=== PATIENT | male | born 1960 | race Caucasian/White ===

== ENCOUNTER → 2016-10-08 | Outpatient (CLI) | payer BC, OTHER ==
[~2016-10-08] MED LIST: ALBU0.084 NEB; ALBU17IN INH; ALBU83IN INH; ASCO10003 PO; ASPI81CH39 PO; ASPI81TA7 PO; BYST20TA PO; BYST20TA2 PO; COLE1TAB PO; FISH1200 PO; FISH120012 PO; FISH5CAP PO; LEVA1TAB2 PO; LEVO500T PO; LOVA1CAP17 PO; MULTCAP12 PO; MULTLIQ7 PO; MULTTAB4 PO; PRAV20TA2 PO; PRAV40TA2 PO; PRED10TA PO; VITA10006 PO; ZETI10TA30 PO
--- NOTE | 2016-10-09 12:47 | REP ---
CHEST, TWO VIEWS: Two views of the chest are performed and compared with prior study of 05/03/2016 as well as other prior exams. There is mild biapical pleural thickening and scattered mild interstitial opacities which are unchanged. No acute infiltrate or pulmonary edema is seen. The heart is not enlarged. The mediastinal silhouette is unchanged. There are mild degenerative changes of the spine. IMPRESSION: Stable chronic findings without evidence of acute infiltrate. Signed by Darrius Bird MD 10/09/2016 07:29 P
== END ==
LOC: M RAD 21:08
PROVIDERS: ATTEND Physician Assistant
DX: R06.02 Shortness of breath (principal); R05 Cough

== ENCOUNTER → 2017-06-14 | Outpatient (REF) | payer BC, OTHER | LOC: M LAB REF 13:27 | DX: C44.519 Basal cell carcinoma of skin of other part of trunk (principal) | CPT/HCPCS: 88305 ==

== ENCOUNTER → 2017-07-30 | Outpatient (CLI) | payer BC, OTHER | LOC: M WUC 13:12 | DX: J44.9 Chronic obstructive pulmonary disease, unspecified (principal); R07.9 Chest pain, unspecified | CPT/HCPCS: 71046 ==

== ENCOUNTER → 2018-01-11 | Outpatient (REF) | payer OTHER | LOC: M LAB REF 17:26 | DX: L57.0 Actinic keratosis (principal) ==

== ENCOUNTER → 2018-06-15 | Outpatient (REF) | payer OTHER | LOC: M SFHCPLAZ 09:58 | PROVIDERS: ATTEND Dermatology | DX: L57.0 Actinic keratosis (principal) ==

== ENCOUNTER 2018-08-29 10:35 | Day surgery (SDC) | payer BC, OTHER ==
[~2018-08-29] VITALS: Ht 180.3 cm; Wt 103.9 kg
[~2018-08-29 10:35] MED LIST changes: +ALEV220T22 PO; -ASPI81CH39 PO; +ASPI81CH44 PO; +BIMA01SOL OD; +GABA-843 PO; +GLIP5TAB20 PO; +LIDOCAINE 2% INJ 100 MG/5 ML SDV (FOR ANES.) As Ordered ONE; +NS 1,000 ML IV ONE; +OMEG1CAP16 PO; +PRED-351 PO; -PRED10TA PO; +PROPOFOL 200 MG/20 ML VIAL As Ordered ONE; +REST0.05 OD; +VITA-172 PO; +VITA500T PO
[2018-08-29] MEDS ORDERED: fentaNYL 100 MCG/2 ML INJECTION (J3010) As Ordered ONE (11:10)
--- NOTE | 2018-08-29 11:40 | ROOR ---
Patient Name: Moris Damian Procedure Date: 08/29/2018 11:28 AM Date of : 1960 Age: 57 Room: [facility] Gender: Male Note Status: Finalized Procedure: Upper GI endoscopy Indications: Dysphagia Providers: DO José Miguel Kapadia MD: Tc Fagan MD Requesting Provider: Medicines: Propofol per Anesthesia Complications: No immediate complications. Procedure: Pre-Anesthesia Assessment: - Prior to the procedure, a History and Physical was performed, and patient medications and allergies were reviewed. The patient is competent. The risks and benefits of the procedure and the sedation options and risks were discussed with the patient. All questions were answered and informed consent was obtained. Patient identification and proposed procedure were verified by the physician, the nurse, the anesthesiologist and the environmental health technician in the endoscopy suite. Mental Status Examination: alert and oriented. Airway Examination: normal oropharyngeal airway and neck mobility. Respiratory Examination: clear to auscultation. CV Examination: normal. Prophylactic Antibiotics: The patient does not require prophylactic antibiotics. Prior Anticoagulants: The patient has taken no previous anticoagulant or antiplatelet agents. ASA Grade Assessment: II - A patient with mild systemic disease. After reviewing the risks and benefits, the patient was deemed in satisfactory condition to undergo the procedure. The anesthesia plan was to use monitored anesthesia care (MAC). Immediately prior to administration of medications, the patient was re-assessed for adequacy to receive sedatives. The heart rate, respiratory rate, oxygen saturations, blood pressure, adequacy of pulmonary ventilation, and response to care were monitored throughout the procedure. The physical status of the patient was re-assessed after the procedure. The Endoscope was introduced through the mouth, and advanced to the second part of duodenum. The upper GI endoscopy was accomplished without difficulty. The patient tolerated the procedure well. Findings: The Z-line was irregular. Biopsies were taken with a cold forceps for histology. Estimated blood loss was minimal. A small hiatal hernia was present. Impression: - Z-line irregular. Biopsied. - Small hiatal hernia. Recommendation: - Patient has a contact number available for emergencies. The signs and symptoms of potential delayed complications were discussed with the patient. Return to normal activities tomorrow. Written discharge instructions were provided to the patient. - Await pathology results. - Return to my office as previously scheduled. Darrius Lowe DO 08/29/2018 11:39:43 AM Electronically signed by Darrius Lowe DO Number of Addenda: 0 Note Initiated On: 08/29/2018 11:28 AM Estimated Blood Loss: Estimated blood loss: none.
[2018-08-29 12:10] VITALS: BP 160/84
== END 2018-08-29 12:09 | disposition home or self-care (01) ==
LOC: M OPP 10:35
PROVIDERS: ATTEND Surgery
DX: K22.8 Other specified diseases of esophagus (principal); K44.9 Diaphragmatic hernia without obstruction or gangrene; R13.10 Dysphagia, unspecified; Z88.0 Allergy status to penicillin; Z88.8 Allergy status to other drugs, medicaments and biological substances; Z79.899 Other long term (current) drug therapy; Z87.891 Personal history of nicotine dependence
CPT/HCPCS: 43239; 88305; J3010

== ENCOUNTER → 2018-09-10 | Outpatient (CLI) | payer BC, OTHER ==
[~2018-09-10] MED LIST changes: +E-Z-GAS II EFFERVESCENT PACKET (SODIUM BICARB./CITRIC ACID/SIMETHICONE) As Ordered ONE; +E-Z-HD 98% w/w 340GM SUSP BTL As Ordered ONE; +E-Z-PAQUE 96% w/w SUSP 176GM BTL As Ordered ONE; -LIDOCAINE 2% INJ 100 MG/5 ML SDV (FOR ANES.) As Ordered ONE; -NS 1,000 ML IV ONE; -PROPOFOL 200 MG/20 ML VIAL As Ordered ONE
--- NOTE | 2018-09-11 08:37 | REP ---
Examination Requested: Esophagram Barium Swallow Reason For Exam/Comment: Dysphasia Esophagram: The procedure was performed LESLEY Salmon, under the direct supervision of Dr. Nye. The images were reviewed with Dr. Nye . 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 No significant changes since previous chest x-ray dated 07/30/2018. Liquid barium and gas producing granules were given in the erect position as well as liquid barium in the prone oblique position, in order to perform a double contrast esophagram examination. Oral and pharyngeal stages of the examination were unremarkable. Esophageal transport is efficient and there is no esophagitis, stricture, or mucosal ring noted. There is a sliding hiatal hernia noted. Gastroesophageal reflux was noted to the level of the thoracic inlet. Impression: 1. Sliding hiatal hernia. 2. Gastroesophageal reflux to the level of the thoracic inlet. 0.7 minutes of fluoroscopy time was utilized for this procedure. Some fluoroscopic images are performed with last image hold technology. These images require no additional radiation. Reviewed by LESLEY Phelan 09/10/2018 04:09 P Electronically Signed by Robert Nye MD 09/11/2018 07:47 A
== END ==
LOC: M RAD 09:58
PROVIDERS: ATTEND Nurse Practitioner
DX: K44.9 Diaphragmatic hernia without obstruction or gangrene (principal); K21.9 Gastro-esophageal reflux disease without esophagitis

== ENCOUNTER 2019-03-24 19:32 | Emergency (ER) | payer BC, OTHER ==
[~2019-03-24] VITALS: Ht 175.3 cm; Wt 105.5 kg
[~2019-03-24 19:32] MED LIST changes: -E-Z-GAS II EFFERVESCENT PACKET (SODIUM BICARB./CITRIC ACID/SIMETHICONE) As Ordered ONE; -E-Z-HD 98% w/w 340GM SUSP BTL As Ordered ONE; -E-Z-PAQUE 96% w/w SUSP 176GM BTL As Ordered ONE; +ZETI10TA16 PO; -ZETI10TA30 PO
[2019-03-24] MEDS ORDERED: MILK500C PO (19:46)
[2019-03-24] MEDS ORDERED: CBD OIL (19:46)
[2019-03-24 20:00] VITALS: BP 184/77
[2019-03-24] MEDS ORDERED: ACETAMINOPHEN *IV* 1,000 MG in IV 1 EA IV ONE (20:15)
--- NOTE | 2019-03-24 21:34 | REPVR ---
PROCEDURE INFORMATION: Exam: CT Abdomen And Pelvis Without Contrast Exam date and time: 03/24/2019 8:18 PM Age: 58 years old Clinical indication: Abdominal pain; Colic; Additional info: R colic TECHNIQUE: Imaging protocol: Computed tomography of the abdomen and pelvis without contrast. Radiation optimization: All CT scans at this facility use at least one of these dose optimization techniques: automated exposure control; mA and/or kV adjustment per patient size (includes targeted exams where dose is matched to clinical indication); or iterative reconstruction. COMPARISON: No relevant prior studies available. FINDINGS: Pleural space: Small calcified and noncalcified pleural plaques. Mediastinum: Small fat containing hiatal hernia. Liver: The liver is low attenuation indicating hepatic steatosis. Gallbladder and bile ducts: Normal. No calcified stones. No ductal dilation. Pancreas: Atrophy and partial fatty replacement of the pancreas. Pancreas is otherwise unremarkable without mass or inflammatory changes. Spleen: Normal. No splenomegaly. Adrenals: Normal. No mass. Kidneys and ureters: Normal. No hydronephrosis. Stomach and bowel: Unremarkable. No obstruction. No mucosal thickening. Appendix: No evidence of appendicitis. Intraperitoneal space: Unremarkable. No free air. No significant fluid collection. Vasculature: Unremarkable. No abdominal aortic aneurysm. Lymph nodes: Unremarkable. No enlarged lymph nodes. Bladder: Unremarkable as visualized. Reproductive: Unremarkable as visualized. Bones/joints: There are degenerative changes in the spine and pelvis. Soft tissues: Unremarkable. IMPRESSION: 1. No acute findings. No urinary tract calculi or hydronephrosis. 2. Atrophy and partial fatty replacement of the pancreas without inflammatory changes. 3. Hepatic steatosis. 4. Small fat containing hiatal hernia. Electronically signed by: Joey Koo On 03/24/2019 21:33:32 PM
[2019-03-24] MEDS ORDERED: MORPHINE 4 MG/ML 1ML VIAL/SYRINGE (J2270) IV ONE (22:30)
== END 2019-03-24 23:12 | disposition home or self-care (01) ==
LOC: M ED 19:32
DX: S39.012A Strain of muscle, fascia and tendon of lower back, initial encounter (principal); X58.XXXA Exposure to other specified factors, initial encounter; Y92.9 Unspecified place or not applicable; Y93.9 Activity, unspecified; Y99.9 Unspecified external cause status; E11.9 Type 2 diabetes mellitus without complications; I10 Essential (primary) hypertension; Z87.09 Personal history of other diseases of the respiratory system; J44.9 Chronic obstructive pulmonary disease, unspecified; M19.90 Unspecified osteoarthritis, unspecified site; Z95.5 Presence of coronary angioplasty implant and graft; K76.0 Fatty (change of) liver, not elsewhere classified; Z79.82 Long term (current) use of aspirin; Z79.84 Long term (current) use of oral hypoglycemic drugs; Z79.899 Other long term (current) drug therapy; Z88.6 Allergy status to analgesic agent; Z88.0 Allergy status to penicillin; Z88.8 Allergy status to other drugs, medicaments and biological substances
CPT/HCPCS: 74176; 96374; 96375; 99284; J0131; J2270

== ENCOUNTER 2019-03-26 15:37 | Emergency (ER) | payer BC, OTHER ==
[~2019-03-26] VITALS: Ht 175.3 cm; Wt 110.4 kg
[~2019-03-26 15:37] MED LIST changes: +CBD OIL; +MILK500C PO
[2019-03-26] MEDS ORDERED: MELO15TA28 (16:13)
[2019-03-26] MEDS ORDERED: TRAM50TA2 (16:13)
--- NOTE | 2019-03-26 18:10 | REP ---
Chest x-ray: Two views. History: Short of breath. Comparison study: July 30, 2017. Findings: There is post thoracotomy suture line in the right apex medially. The lungs are well inflated and otherwise clear. Pleural angles are sharp. Heart size is normal. Pulmonary vasculature is not increased. Impression: Stable post thoracotomy changes on the right. Otherwise no acute disease. Electronically Signed by Marshall Hidalgo MD 03/26/2019 06:00 P
[2019-03-26 18:17] LABS: BASO % 0.4 % (0.0-1.0); EOS # 0.1 10^3/uL (0.0-0.5); EOS % 0.9 % (0.0-3.0); HEMATOCRIT 44.8 % (42.0-52.0); HEMOGLOBIN 15.2 g/dl (13.5-17.5); LYMPH # 2.3 10^3/uL (1.5-5.0); LYMPH % 22.9 % (24.0-44.0); MEAN CORPUSCULAR HEMOGLOBIN 30.6 pg (27.0-33.0); MEAN CORPUSCULAR HGB CONC 33.9 g/dl (32.0-36.5); MEAN CORPUSCULAR VOLUME 90.1 fl (80.0-96.0); MONO # 0.7 10^3/uL (0.0-0.8); NEUTROPHILS # 6.9 10^3/uL (1.5-8.5); PLATELET COUNT, AUTOMATED 243 10^3/uL (150-450); RED BLOOD COUNT 4.97 10^6/uL (4.30-6.10); WHITE BLOOD COUNT 10.2 10^3/uL (4.0-10.0)
[2019-03-26 18:26] LABS: INR 1.03; PROTHROMBIN TIME 13.2 SECONDS (11.8-14.0)
[2019-03-26 18:27] LABS: PARTIAL THROMBOPLASTIN TIME 28.3 SECONDS (25.0-38.4)
[2019-03-26 18:40] LABS: ALBUMIN 3.6 GM/DL (3.2-5.2); ALT/SGPT 40 U/L (12-78); BILIRUBIN,DIRECT 0.2 MG/DL (0.0-0.2); BILIRUBIN,TOTAL 0.8 MG/DL (0.2-1.0); BLOOD UREA NITROGEN 7 MG/DL (7-18); CALCIUM LEVEL 8.9 MG/DL (8.5-10.1); CARBON DIOXIDE LEVEL 30 MEQ/L (21-32); CHLORIDE LEVEL 105 MEQ/L (98-107); CK-MB VALUE MASS 2.1 NG/ML (<3.6); CPK CREATINE PHOSPHOKINASE 126 U/L (39-308); CREATININE FOR GFR 0.78 MG/DL (0.70-1.30); FREE T4 0.96 NG/DL (0.76-1.46); GLOMERULAR FILTRATION RATE > 60.0 (>56); GLUCOSE, FASTING 130 MG/DL (70-100); MB/CK RELATIVE INDEX 1.67 (< OR =4); POTASSIUM SERUM 4.1 MEQ/L (3.5-5.1); SODIUM LEVEL 142 MEQ/L (136-145); TOTAL PROTEIN 7.1 GM/DL (6.4-8.2); TROPONIN I < 0.02 NG/ML (< 0.10)
[2019-03-26] MEDS ORDERED: IPRATROPIUM 0.5MG/ALBUTEROL 2.5MG INH SOL UD 3ML (DUONEB)(J7620) NEB ONE (19:00)
[2019-03-26] MEDS ORDERED: methylPREDNISolone INJ 125 MG/2 ML VIAL (J2930) IV ONE (19:00)
[2019-03-26] MEDS ORDERED: ISOVUE-370 76% 100ML VIAL (Q9967) As Ordered ONE (19:16)
--- NOTE | 2019-03-26 20:56 | REPVR ---
PROCEDURE INFORMATION: Exam: CT Angiography Chest With Contrast Exam date and time: 03/26/2019 7:16 PM Age: 58 years old Clinical indication: Shortness of breath; Additional info: SOB, palpitations TECHNIQUE: Imaging protocol: Computed tomographic angiography of the chest with intravenous contrast. 3D rendering: MIP and/or 3D reconstructed images were created by the technologist. Radiation optimization: All CT scans at this facility use at least one of these dose optimization techniques: automated exposure control; mA and/or kV adjustment per patient size (includes targeted exams where dose is matched to clinical indication); or iterative reconstruction. Contrast material: ISOVUE 370; Contrast volume: 75 ml; Contrast route: IV; COMPARISON: CT ANGIO CHEST 10/20/2014 11:53 PM FINDINGS: Pulmonary arteries: There are no pulmonary emboli. Aorta: There is no aortic dissection or aneurysm. Lungs: Mild bilateral apical subpleural interstitial fibrotic changes and cystic change likely related to paraseptal emphysema and less likely interstitial lung disease, stable in comparison to the prior study. There is bibasilar compressive atelectasis. Nodular opacity in the medial aspect of the right middle lobe has increased in size now measuring 10 x 7 mm in maximal cross-sectional dimension with craniocaudad measurement of 4.8 cm. Finding is of uncertain significance and appears to represent a vascular structure, however the interval increase in size is a potentially worrisome finding. Continued interval follow-up suggested. Pleural space: Unremarkable. No pneumothorax. No pleural effusion. Heart: Cardiomegaly. Mediastinum: A moderate hiatal hernia is present. Liver: Hepatic steatosis. Lymph nodes: Mediastinal lymphadenopathy measures up to 12 mm in the lateral AP window, 10 mm in the retrocaval pretracheal area and 9 mm in the right paraesophageal region. Bones/joints: The spine demonstrates mild degenerative changes. Soft tissues: Unremarkable. IMPRESSION: 1. Stable upper lung zone paraseptal emphysema/interstitial lung disease. 2. Nodular opacity in the medial aspect of the right middle lobe has increased in size as described above. Finding is of uncertain significance and appears to represent a vascular structure, however the interval increase in size is a potentially worrisome finding. Continued interval follow-up suggested. 3. There is no aortic dissection or aneurysm. 4. A moderate hiatal hernia is present. 5. There are no pulmonary emboli. Electronically signed by: Grzegorz Rojas On 03/26/2019 20:56:10 PM
[2019-03-26 21:45] VITALS: BP 174/85
[2019-03-26] MEDS ORDERED: PRED20TA PO (22:23)
[2019-03-26] MEDS ORDERED: NORCO 5/325MG TABLET (BULK FOR ED) PO ONE (22:30)
--- NOTE | 2019-03-27 08:03 | ECGEPIP ---
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
--- NOTE | 2019-03-27 13:00 | ED PDOC ---
Post-Departure Follow-Up dr francis faxed formal report of cta chest for fu Mayelin Cruz MD Mar 27, 2019 13:00
== END 2019-03-26 22:42 | disposition home or self-care (01) ==
LOC: M ED 15:37
DX: J44.1 Chronic obstructive pulmonary disease with (acute) exacerbation (principal); Z87.891 Personal history of nicotine dependence; K44.9 Diaphragmatic hernia without obstruction or gangrene; Z79.82 Long term (current) use of aspirin; Z79.84 Long term (current) use of oral hypoglycemic drugs; Z79.899 Other long term (current) drug therapy; Z88.6 Allergy status to analgesic agent; Z88.0 Allergy status to penicillin; Z88.8 Allergy status to other drugs, medicaments and biological substances
CPT/HCPCS: 71046; 71275; 80048; 80076; 82550; 82553; 84439; 84443; 84484; 85025; 85610; 85730; 93005; 93041; 94640; 94760; 96374; 99285; J2930; Q9967

== ENCOUNTER → 2019-04-11 | Outpatient (CLI) | payer BC, OTHER ==
[~2019-04-11] MED LIST changes: +ASPI1CHW3 PO; -ASPI81CH44 PO; +MELO15TA28; +PRED20TA PO; +TRAM50TA2
--- NOTE | 2019-04-11 14:07 | PFTRPT ---
Site: [facility], [address] [place], [address] ID: [id number] Name: CALLIE SUAREZ Visit Date: 04/11/2019 Second ID: [id number] Referring Doctor: Stacia Lee MD Reviewing Doctor: Nile Cardenas MD Tower Supervisor: Suzette MCCLAIN RRT Age: 58 : 1960 Sex: Male Race: Height: 71.00 Inches Weight: 229.00 Lbs BSA: 2.23 Order IDs: [id number] Requested Test(s): <RESP-PFT.PFT B/A> Diagnosis: J44.9 test appear to be valid, although the ATS standard for "end of test" was not met. Pt was given four puffs of albuterol for postbronchodilator. Review Status: Not Reviewed Pre-Bronch Post-Bronch Pred Actual %Pred Actual %Chng SPIROMETRY FVC (L) 4.99 3.69 73 4.03 9 FEV1 (L) 3.79 2.92 77 3.31 13 FEV1/FVC (%) 76 79 104 82 3 FEF 25% (L/sec) 7.99 7.46 93 7.83 4 FEF 50% (L/sec) 4.87 4.43 90 5.83 31 FEF 75% (L/sec) 1.58 0.81 50 2.38 195 FEF 25-75% (L/sec) 3.15 2.89 91 5.09 75 FEF Max (L/sec) 9.56 7.87 82 8.14 3 FIVC (L) 3.85 3.40 -11 FIF 50% (L/sec) 4.76 3.68 77 2.13 -42 FIF Max (L/sec) 4.55 4.33 -4 MVV (L/min) 146 106 72 Expiratory Time (sec) 6.41 6.42 Back Extrap Vol (L) 0.14 0.12 -8 Time To FEFmax (sec) 0.085 0.086 1 LUNG VOLUMES SVC (L) 4.93 3.86 78 IC (L) 3.44 3.39 98 ERV (L) 1.49 0.47 31 TGV (L) 3.75 2.18 58 RV (Pleth) (L) 2.26 1.70 75 TLC (Pleth) (L) 7.19 5.57 77 RV/TLC (Pleth) (%) 32 31 95 DIFFUSION DLCOunc (ml/min/mmHg) 29.22 21.04 72 DLCOcor (ml/min/mmHg) 29.22 22.42 76 DL/VA (ml/min/mmHg/L) 4.06 4.40 108 VA (L) 7.19 5.10 70 BHT (sec) 10.35 IVC (L) 3.84 TLC (SB) (L) 5.25 AIRWAYS RESISTANCE Raw (cmH2O/L/s) 1.45 1.25 86 Gaw (L/s/cmH2O) 1.03 0.80 77 sRaw (cmH2O*s) 4.76 2.90 61 sGaw (1/cmH2O*s) 0.20 0.35 173 BLOOD GASES Hgb (gm/dL) 12.6
== END ==
LOC: M CARPUL 13:27
PROVIDERS: ATTEND Internal Medicine Pulmonary Disease
DX: J44.9 Chronic obstructive pulmonary disease, unspecified (principal)

== ENCOUNTER 2020-02-02 19:29 | Emergency (ER) | payer BC, OTHER ==
[~2020-02-02] VITALS: Ht 180.3 cm; Wt 106.5 kg
[~2020-02-02 19:29] MED LIST changes: +VITA-243 PO; -VITA500T PO
[2020-02-02] MEDS ORDERED: NS 1,000 ML IV SCH (19:55)
--- NOTE | 2020-02-02 20:35 | REPVR ---
PROCEDURE INFORMATION: Exam: XR Chest, 1 View Exam date and time: 02/02/2020 8:24 PM Age: 59 years old Clinical indication: Chest pain; Type not specified TECHNIQUE: Imaging protocol: XR of the chest Views: 1 view. COMPARISON: CT ANGIO CHEST 03/26/2019 7:09 PM FINDINGS: Lungs: Degree of lung inflation is normal. No evidence of pulmonary edema. No focal consolidation or parenchymal lung mass. Pleural space: No pleural effusion or pneumothorax. Heart/Mediastinum: Cardiac silhouette appears normal. No adenopathy or hilar mass. Bones/joints: Osseous structures show no concerning abnormality. IMPRESSION: No acute or focal cardiopulmonary process. The Electronically signed by: Kailash Jean On 02/02/2020 20:35:23 PM
[2020-02-02 20:49] LABS: BASO # 0.1 10^3/uL (0.0-0.2); BASO % 0.3 % (0.0-1.0); EOS # 0.1 10^3/uL (0.0-0.5); EOS % 0.3 % (0.0-3.0); HEMATOCRIT 51.6 % (42.0-52.0); HEMOGLOBIN 17.3 g/dl (13.5-17.5); LYMPH # 3.8 10^3/uL (1.5-5.0); LYMPH % 23.4 % (24.0-44.0); MEAN CORPUSCULAR HEMOGLOBIN 30.2 pg (27.0-33.0); MEAN CORPUSCULAR HGB CONC 33.5 g/dl (32.0-36.5); MEAN CORPUSCULAR VOLUME 90.2 fl (80.0-96.0); MONO # 1.1 10^3/uL (0.0-0.8); MONO % 7.1 % (0.0-5.0); NEUTROPHILS % 68.2 % (36.0-66.0); PLATELET COUNT, AUTOMATED 271 10^3/uL (150-450); RED BLOOD COUNT 5.72 10^6/uL (4.30-6.10); WHITE BLOOD COUNT 16.1 10^3/uL (4.0-10.0)
[2020-02-02 21:14] LABS: ALBUMIN 4.2 GM/DL (3.2-5.2); ALT/SGPT 72 U/L (12-78); BILIRUBIN,DIRECT 0.3 MG/DL (0.0-0.2); BILIRUBIN,TOTAL 1.3 MG/DL (0.2-1.0); BLOOD UREA NITROGEN 12 MG/DL (7-18); CALCIUM LEVEL 9.4 MG/DL (8.5-10.1); CARBON DIOXIDE LEVEL 32 MEQ/L (21-32); CHLORIDE LEVEL 103 MEQ/L (98-107); CK-MB VALUE MASS 1.4 NG/ML (<3.6); CPK CREATINE PHOSPHOKINASE 100 U/L (39-308); CREATININE FOR GFR 0.88 MG/DL (0.70-1.30); FREE T4 1.13 NG/DL (0.76-1.46); GLOMERULAR FILTRATION RATE > 60.0 (>56); GLUCOSE, FASTING 143 MG/DL (70-100); LIPASE 89 U/L (73-393); POTASSIUM SERUM 4.2 MEQ/L (3.5-5.1); SODIUM LEVEL 140 MEQ/L (136-145); TOTAL PROTEIN 7.9 GM/DL (6.4-8.2); TROPONIN I < 0.02 NG/ML (< 0.10)
[2020-02-02 22:01] VITALS: BP 148/92
--- NOTE | 2020-02-03 10:20 | ECGEPIP ---
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
== END 2020-02-02 22:25 | disposition home or self-care (01) ==
LOC: M ED 19:29
DX: R63.0 Anorexia (principal); K21.9 Gastro-esophageal reflux disease without esophagitis; I10 Essential (primary) hypertension; J44.9 Chronic obstructive pulmonary disease, unspecified; Z79.51 Long term (current) use of inhaled steroids; Z79.52 Long term (current) use of systemic steroids; Z79.899 Other long term (current) drug therapy; Z87.891 Personal history of nicotine dependence; Z88.1 Allergy status to other antibiotic agents; Z88.6 Allergy status to analgesic agent
CPT/HCPCS: 71045; 80048; 80076; 82550; 82553; 83690; 84439; 84443; 84484; 85025; 93005; 93041; 94760; 96360; 99285; U0003

== ENCOUNTER → 2020-04-06 | Outpatient (CLI) | payer BC, OTHER ==
[~2020-04-06] MED LIST changes: +GABA-282 PO; -GABA-843 PO; +ISOVUE-370 76% 100ML VIAL As Ordered ONE
--- NOTE | 2020-04-06 10:20 | REP ---
INDICATION: SOLITARY PULMONARY NODULE COMPARISON: 03/26/2019 TECHNIQUE: Axial contrast enhanced images from the thoracic inlet to the upper abdomen with coronal and sagittal reformations using 75 ml Isovue 370 intravenous contrast material. [address] CT examination was performed using the following dose reduction techniques: Automated exposure control, adjustment of mA and/or kv according to the patient's size, and use of iterative reconstruction technique. FINDINGS: The bilateral lung reynolds again demonstrate early emphysematous changes along with diffuse chronic interstitial changes and scattered scarring which remain relatively stable. There is a somewhat multinodular subpleural density along the kerwin medial aspect of the right upper/middle lobes with suggestions for adjacent subpleural vessels and a similar appearing process along the anteromedial aspect of the left lung. These findings are similar to multiple examinations dating back through 10/21/2014 and are of uncertain clinical etiology or significance. These may represent small chronic granulomas or possible small lymph nodes as well as incidental vascular structures. Scattered mild chronic areas of pleural thickening are also noted without significant change. There is no evidence for acute consolidation or further significant pulmonary parenchymal nodule/mass. No pleural effusion. No pneumothorax. Tracheobronchial tree is patent. Nonspecific mediastinal lymph nodes are unchanged. Thoracic aorta, pulmonary vasculature, and heart/pericardium are normal. Surrounding musculoskeletal structures demonstrate age-related changes without acute osseous abnormality. Limited upper abdomen demonstrates hepatosteatosis and normal bilateral adrenal glands. IMPRESSION: 1. The previously noted pleural and pulmonary parenchymal changes including the areas of nodularity along the anteromedial aspects of the right middle lobe and left upper lobe appear relatively unchanged. These findings may be related to prior granulomatous disease or infectious/inflammatory process. 2. No new acute/significant consolidation, effusion, or nodule/mass lesion appreciated. <Electronically signed by Robert Nye > 04/06/20 [id number]
== END ==
LOC: M RAD 09:27
PROVIDERS: ATTEND Internal Medicine Pulmonary Disease
DX: R91.1 Solitary pulmonary nodule (principal)
CPT/HCPCS: 71260; Q9967

== ENCOUNTER 2020-11-10 12:06 | Emergency (ER) | payer BC, OTHER ==
[~2020-11-10] VITALS: Ht 180.3 cm; Wt 108.4 kg
[~2020-11-10 12:06] MED LIST changes: -ISOVUE-370 76% 100ML VIAL As Ordered ONE
[2020-11-10] MEDS ORDERED: MORPHINE 4 MG/ML 1ML VIAL/SYRINGE (J2270) IV ONE (13:05)
[2020-11-10] MEDS ORDERED: ONDANSETRON 4MG/2ML VIAL IV ONE (13:05)
[2020-11-10 13:10] LABS: BASO # 0.1 10^3/uL (0.0-0.2); BASO % 0.6 % (0.0-1.0); EOS # 0.1 10^3/uL (0.0-0.5); EOS % 1.1 % (0.0-3.0); HEMATOCRIT 47.8 % (42.0-52.0); HEMOGLOBIN 16.2 g/dl (13.5-17.5); LYMPH # 2.7 10^3/uL (1.5-5.0); LYMPH % 22.1 % (24.0-44.0); MEAN CORPUSCULAR HEMOGLOBIN 30.6 pg (27.0-33.0); MEAN CORPUSCULAR HGB CONC 33.9 g/dl (32.0-36.5); MEAN CORPUSCULAR VOLUME 90.2 fl (80.0-96.0); MONO % 8.1 % (2.0-8.0); NEUTROPHILS # 8.2 10^3/uL (1.5-8.5); NEUTROPHILS % 66.8 % (36.0-66.0); PLATELET COUNT, AUTOMATED 254 10^3/uL (150-450); WHITE BLOOD COUNT 12.3 10^3/uL (4.0-10.0)
[2020-11-10 13:34] LABS: ALBUMIN 3.4 GM/DL (3.2-5.2); BILIRUBIN,DIRECT 0.1 MG/DL (0.0-0.2); BILIRUBIN,TOTAL 0.6 MG/DL (0.2-1.0); TOTAL PROTEIN 6.8 GM/DL (6.4-8.2)
--- NOTE | 2020-11-10 13:40 | REP ---
INDICATION: LLQ pain, left flank pain with lifting COMPARISON: 03/24/2019 TECHNIQUE: Axial noncontrast images from the lung bases to the pubic symphysis with coronal and sagittal reformations. This CT examination was performed using the following dose reduction techniques: Automated exposure control, adjustment of mA and/or kv according to the patient's size, and use of iterative reconstruction technique. FINDINGS: Lung bases are essentially clear. Visualized heart and pericardium normal. Liver, spleen, pancreas, gallbladder, bilateral adrenal glands and kidneys are normal. No acute perinephric stranding, hydroureteronephrosis, intrarenal or obstructing ureteral calculi identified. The enteric system is unremarkable and without obstruction or acute inflammatory process. Normal terminal ileum and appendix identified in the right lower quadrant. Colonic and sigmoid diverticulosis noted without acute diverticulitis. Pelvis demonstrates normal bladder and age-appropriate prostate/seminal vesicles. No ascites. No free air. No adenopathy. No focal inflammatory stranding. Abdominal aorta without aneurysm. Musculoskeletal structures are intact and without acute osseous abnormality. IMPRESSION: No acute abdominopelvic pathology appreciated. No acute urinary tract pathology appreciated. Colonic diverticulosis without acute diverticulitis. <Electronically signed by Robert Nye > 11/10/20 [id number]
[2020-11-10] MEDS ORDERED: ISOVUE-370 76% 100ML VIAL As Ordered ONE (15:50)
--- NOTE | 2020-11-10 16:38 | REP ---
INDICATION: severe abdominal pain, HTN, DM COMPARISON: None TECHNIQUE: Axial contrast-enhanced images from the lung bases to the pubic symphysis using aortic angiographic technique including multiplanar reformations. Volume rendered 3D CT aortogram obtained. This CT examination was performed using the following dose reduction techniques: Automated exposure control, adjustment of mA and/or kv according to the patient's size, and use of iterative reconstruction technique. FINDINGS: The abdominal aorta demonstrates moderate atherosclerotic changes without aneurysm or dissection. There is relatively satisfactory enhancement of the celiac axis, superior mesenteric artery, bilateral renal arteries and bifurcation to common iliac arteries. Liver, spleen, pancreas, gallbladder, bilateral adrenal glands and kidneys appear relatively normal. The enteric system is without obstruction or acute inflammatory process. Colonic and sigmoid diverticulosis noted without acute diverticulitis. Pelvis demonstrates normal bladder and mild prostatomegaly. No ascites. No free air. No adenopathy. Musculoskeletal structures demonstrate age-related degenerative changes. IMPRESSION: 1. Moderate atherosclerotic changes to the aorta and vasculature without aneurysm or dissection, and no evidence for significant stenosis or occlusion identified. 2. Diverticulosis. 3. Chronic stable changes. <Electronically signed by Robert Nye > 11/10/20 [id number]
[2020-11-10 18:53] VITALS: BP 163/88
--- NOTE | 2020-11-10 20:44 | ECGEPIP ---
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
== END 2020-11-10 18:54 | disposition home or self-care (01) ==
LOC: M ED 12:06
DX: I10 Essential (primary) hypertension (principal); R10.9 Unspecified abdominal pain; R31.1 Benign essential microscopic hematuria; K57.30 Diverticulosis of large intestine without perforation or abscess without bleeding; I70.0 Atherosclerosis of aorta; S39.011A Strain of muscle, fascia and tendon of abdomen, initial encounter; X58.XXXA Exposure to other specified factors, initial encounter; Y92.9 Unspecified place or not applicable; Y93.9 Activity, unspecified; Y99.9 Unspecified external cause status; E66.9 Obesity, unspecified; Z79.82 Long term (current) use of aspirin; Z79.899 Other long term (current) drug therapy; Z88.6 Allergy status to analgesic agent; Z88.0 Allergy status to penicillin; Z88.8 Allergy status to other drugs, medicaments and biological substances
CPT/HCPCS: 74174; 74176; 80047; 80076; 81001; 83605; 83690; 85025; 93005; 93041; 99285; J2270; J2405; Q9967

== ENCOUNTER 2021-03-12 08:03 | Outpatient (CLI) | payer BC, OTHER ==
[~2021-03-12] VITALS: Ht 180.3 cm; Wt 100.0 kg
[~2021-03-12 08:03] MED LIST changes: +ALBUTEROL 90 MCG/ACT 8GM HFA INHALER INH PRN; +ALBUTEROL SULFATE 2.5 MG/0.5 ML INH NEB SOLN INH PRN; +CASIRIVIMAB/IMDEVIMAB 1,200 MG in NS 250 ML IV ONE; +EPINEPHrine INJ 1 MG/ML 1ML AMP IM PRN; +NS 1,000 ML IV SCH; +diphenhydrAMINE 50MG/ML VIAL (J1200) IV PRN; +methylPREDNISolone 125MG 2ML VIAL IV PRN
[2021-03-12 08:33] VITALS: BP 140/72
[2021-03-12 09:03] VITALS: BP 138/72
[2021-03-12 09:33] VITALS: BP 145/68
[2021-03-12 10:33] VITALS: BP 157/75
[2021-03-12] MEDS ORDERED: ACET-683 PO (13:59)
[2021-03-12] MEDS ORDERED: ZOFR4TAB16 PO (14:06)
[2021-03-19] MEDS ORDERED: CEFD300C41 PO (08:37)
== END 2021-03-12 10:33 | disposition home or self-care (01) ==
LOC: M OPCLI4PR 08:03
PROVIDERS: ATTEND Family Medicine
DX: U07.1 COVID-19 (principal); Z88.5 Allergy status to narcotic agent; Z88.1 Allergy status to other antibiotic agents; Z88.6 Allergy status to analgesic agent; Z88.8 Allergy status to other drugs, medicaments and biological substances

== ENCOUNTER 2021-03-12 13:13 | Emergency (ER) | payer BC, OTHER ==
[~2021-03-12] VITALS: Ht 180.3 cm; Wt 103.6 kg
[~2021-03-12 13:13] MED LIST changes: -ALBUTEROL 90 MCG/ACT 8GM HFA INHALER INH PRN; -ALBUTEROL SULFATE 2.5 MG/0.5 ML INH NEB SOLN INH PRN; -CASIRIVIMAB/IMDEVIMAB 1,200 MG in NS 250 ML IV ONE; -EPINEPHrine INJ 1 MG/ML 1ML AMP IM PRN; -NS 1,000 ML IV SCH; -diphenhydrAMINE 50MG/ML VIAL (J1200) IV PRN; -methylPREDNISolone 125MG 2ML VIAL IV PRN
[2021-03-12 13:42] VITALS: BP 160/81
[2021-03-12] MEDS ORDERED: ACETAMINOPHEN 500 MG TAB PO ONE (13:45)
[2021-03-12] MEDS ORDERED: ACET-683 PO (13:59)
[2021-03-12] MEDS ORDERED: ZOFR4TAB16 PO (14:06)
== END 2021-03-12 14:21 | disposition home or self-care (01) ==
LOC: M ED 13:13 → EDBD 13:13 → M ED 14:21
DX: U07.1 COVID-19 (principal); I10 Essential (primary) hypertension; J44.9 Chronic obstructive pulmonary disease, unspecified; K21.9 Gastro-esophageal reflux disease without esophagitis; E78.9 Disorder of lipoprotein metabolism, unspecified; Z79.899 Other long term (current) drug therapy; Z88.8 Allergy status to other drugs, medicaments and biological substances; Z88.0 Allergy status to penicillin; Z88.5 Allergy status to narcotic agent; Z87.891 Personal history of nicotine dependence; Z90.2 Acquired absence of lung [part of]; Z83.3 Family history of diabetes mellitus; Z82.49 Family history of ischemic heart disease and other diseases of the circulatory system

== ENCOUNTER 2021-03-16 16:25 | Inpatient (IN) | payer BC, OTHER ==
[~2021-03-16] VITALS: Ht 180.3 cm; Wt 102.7 kg
[~2021-03-16 16:25] MED LIST changes: +ACET-683 PO; +ZOFR4TAB16 PO
[2021-03-16] MEDS ORDERED: dexameTHASONE 4 MG/ML 1ML VIAL (J1100 PER 1MG) IV ONE (16:45)
[2021-03-16] MEDS: COMBIVENT RESPIMAT 100-20MCG INHALER 4GM INH SCH ×3 (17:05→22:04)
--- NOTE | 2021-03-16 17:12 | REP ---
INDICATION: Coronavirus workup COMPARISON: 02/02/2020 TECHNIQUE: Portable AP view of the chest FINDINGS: Bilateral opacities (left greater than right) are consistent with the given history of COVID-19 pulmonary disease. No effusion. No pneumothorax. Mediastinum and cardiac silhouette are stable. Skeletal structures are intact. IMPRESSION: Bilateral airspace disease consistent with COVID-19 pulmonary disease. <Electronically signed by Robert Nye > 03/16/21 [id number]
[2021-03-16 17:13] LABS: VENOUS BASE EXCESS 1.7 (-2.0-2.0); VENOUS HCO3 27.4 MEQ/L (23.0-27.0); VENOUS O2 SATURATION 66.5 % (60.0-80.0); VENOUS PARTIAL PRESSURE O2 34.7 mmHg (30.0-50.0); VENOUS PH 7.384 UNITS (7.330-7.430); VENOUS STANDARD HCO3 25.1 MEQ/L; VENOUS TOTAL CO2 28.9 MEQ/L (24.0-28.0)
[2021-03-16 17:21] LABS: BASO % 0.4 % (0.0-1.0); HEMATOCRIT 46.5 % (42.0-52.0); HEMOGLOBIN 15.6 g/dl (13.5-17.5); LYMPH # 1.5 10^3/uL (1.5-5.0); LYMPH % 16.9 % (24.0-44.0); MEAN CORPUSCULAR HEMOGLOBIN 30.2 pg (27.0-33.0); MEAN CORPUSCULAR HGB CONC 33.5 g/dl (32.0-36.5); MEAN CORPUSCULAR VOLUME 90.1 fl (80.0-96.0); MONO # 0.8 10^3/uL (0.0-0.8); MONO % 8.9 % (2.0-8.0); NEUTROPHILS # 6.5 10^3/uL (1.5-8.5); NEUTROPHILS % 72.4 % (36.0-66.0); PLATELET COUNT, AUTOMATED 261 10^3/uL (150-450); RED BLOOD COUNT 5.16 10^6/uL (4.30-6.10)
[2021-03-16 17:42] LABS: ALBUMIN 3.2 GM/DL (3.2-5.2); ALT/SGPT 53 U/L (12-78); BILIRUBIN,TOTAL 1.1 MG/DL (0.2-1.0); BLOOD UREA NITROGEN 13 MG/DL (7-18); C REACTIVE PROTEIN QUANTITATIV 3.33 MG/DL (0.00-0.30); CARBON DIOXIDE LEVEL 32 MEQ/L (21-32); CHLORIDE LEVEL 104 MEQ/L (98-107); CREATININE FOR GFR 0.79 MG/DL (0.70-1.30); FERRITIN 497 NG/ML (26-388); GLOMERULAR FILTRATION RATE > 60.0 (>49); GLUCOSE, FASTING 180 MG/DL (70-100); LDH LACTATE DEHYDROGENASE 352 U/L (87-241); POTASSIUM SERUM 3.4 MEQ/L (3.5-5.1); SODIUM LEVEL 142 MEQ/L (136-145); TOTAL PROTEIN 6.8 GM/DL (6.4-8.2)
[2021-03-16] MEDS ORDERED: BYST10TA2 PO (18:12)
[2021-03-16] MEDS ORDERED: ALBU83IN INH (18:12)
[2021-03-16] MEDS ORDERED: GLIP5TAB20 PO (18:12)
[2021-03-16] MEDS ORDERED: PRED10TA2 PO (18:12)
[2021-03-16] MEDS ORDERED: GABA-282 PO (18:12)
[2021-03-16] MEDS ORDERED: PANTOPRAZOLE 40MG VIAL (C9113 PER 1) IV ONE (18:15)
[2021-03-16] MEDS ORDERED: HOME MED LIST COMPLETE! XX SCH (18:15)
[2021-03-16] MEDS ORDERED: IPRATROPIUM 0.5MG/ALBUTEROL 2.5MG INH SOL UD 3ML (DUONEB) NEB ONE (18:20)
[2021-03-16] MEDS ORDERED: GLUCOSE 4GM CHEW TABLET PO PRN (18:25)
[2021-03-16] MEDS ORDERED: GLUCAGON INJ 1MG VIAL SC PRN (18:25)
[2021-03-16] MEDS ORDERED: DEXTROSE 50% 50 ML SYRINGE IV PRN (18:25)
[2021-03-16] MEDS ORDERED: ONDANSETRON 4MG/2ML VIAL IV PRN (19:15)
--- NOTE | 2021-03-16 19:18 | HPEPDOC ---
General Date of Admission 03/16/21 Date of Service: Mar 16, 2021 Chief Complaint The patient is a 60-year-old male admitted with a reason for visit of Weakness. Source: Patient History of Present Illness 60-year-old male with history of COPD, bullous emphysema, bilateral upper lobe wedge resections, SETH uses 2 L at night as did not tolerate CPAP, CAD, hypertension, hyperlipidemia, diabetes, chronic back pain who tested positive for Covid on 03/10/2021 and got monoclonal antibody on 03/12/2021 presented to the emergency room by ambulance for feeling worse with extreme weakness, poor appetite unable to eat or drink much in days, unable to take medications, worsening cough and shortness of breath. He has been short of breath on minimal exertion and today even at rest. He has not been producing any phlegm. He has been using his oxygen both during the day and night and he noted that his oxygen saturations at home with 2 L was at 88%. In the emergency room he was needing 4 L oxygen to maintain his saturations in 90 to 92% range. His respiratory rate was 22. He is admitted for COVID-19 pneumonia with acute hypoxic respiratory failure. Home Medications Scheduled Ascorbic Acid (Vitamin C) 500 Mg Tablet, 1,000 MG PO DAILY, (Reported) Aspirin (Aspirin) 81 Mg Chw, 81 MG PO DAILY, (Reported) Gabapentin (Gabapentin) 300 Mg Capsule, 300 MG PO TID, (Reported) Glipizide (Glipizide ER) 5 Mg Tab.er.24, 5 MG PO DAILY, (Reported) Nebivolol HCl (Bystolic) 10 Mg Tablet, 10 MG PO DAILY, (Reported) Prednisone (Prednisone) 10 Mg Tablet, 40 MG PO DAILY, (Reported) Take 4 tabs daily x 5 days, then 3 tabs daily x 5 days, then 2 tabs daily x 5 days, then 1 tab daily x 5 days and then 1/2 tablet daily for 5 days then stop Scheduled PRN Albuterol Sulf (Albuterol Sulfate) 2.5 Mg/3 Ml Vial.neb, 2.5 MG INH for SHORTNES S OF BREATH, (Reported) Allergies Coded Allergies: morphine (Verified Allergy, Intermediate, 03/16/21) dyspnea NSAIDS (Non-Steroidal Anti-Inflamma (Verified Allergy, Unknown, 08/28/18) clavulanic acid (Verified Allergy, Unknown, 08/28/18) metformin (Verified Allergy, Unknown, 08/28/18) tramadol (Verified Adverse Reaction, Intermediate, 03/16/21) syncope amoxicillin (Verified Adverse Reaction, Mild, NAUSEA, VOMITING, 03/16/21) cyclobenzaprine (Verified Adverse Reaction, Mild, GI UPSET, 03/16/21) Past Medical History Medical History Covid diagnosed on 03/10/2021 status post monoclonal antibody infusion on 03/12/2021 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 s/p Left upper lobe wedge resection, talc pleurodesis Right recurrent pneumothorax in 2013 multiple chest tubes occurrence of pleural alveolar fistula status post 3 wedge resections in right upper lobe, talc pleurodesis Bronchiectasis Sleep apnea recommended CPAP not tolerated, uses 2 L of oxygen at night CAD status post angioplasty GERD Hiatal hernia Diabetes Chronic back pain Hypertension Hyperlipidemia Recurrent boils Seborrheic dermatitis Seborrheic keratosis Verruca status post cryotherapy number of places Surgical History Excision of basal cell cancer x2 Left upper lobe and right upper lobe wedge resections resection on both lungs. Left in 2012, right in 2013 Tonsillectomy Adenoidectomy Appendectomy Lumbar laminectomy Family History Mother with diabetes hypertension heart disease Social History * Smoker: Denies Alcohol: Denies Drugs: denies A-FIB/CHADSVASC A-FIB History Current/History of A-Fib/PAF?: No Review of Systems Constitutional: Reports: Fever, Malaise, Weakness, Fatigue ENT: Reports: Head Aches Skin: Denies: Rash, Lesions, Breakdown Pulmonary: Reports: Dyspnea, Cough Cardiovascular: Denies: Chest Pain, Palpitations, Orthopnea, Paroxysmal Noc. Dyspnea Gastrointestinal: Reports: Nausea; Denies: Vomiting, Abdominal Pain, Diarrhea Genitourinary: Denies: Dysuria, Frequency, Incontinence, Retention Hematologic: Denies: Bruising, Bleeding Excessively Musculoskeletal: Reports: Back Pain Physical Examination General Exam: Positive: Alert, Cooperative, No Acute Distress Eye Exam: Positive: PERRLA, Conjunctiva & lids normal, EOMI; Negative: Sclera icteric Neck Exam: Positive: Supple; Negative: JVD, thyromegaly Chest Exam: Positive: Diminished, Other (Bilateral crackles at the bases); Negative: Rales, Rhonchi, Wheezing Heart Exam: Positive: Rate Normal, Regular Rhythm, Normal S1, Normal S2; Negative: Murmurs, Rubs Telemetry: Positive: No significant arrhythmia Abdomen Exam: Positive: Normal bowel sounds, Soft, Other (Obese); Negative: Tenderness Extremity Exam: Negative: Clubbing, Cyanosis, Edema Skin Exam: Positive: Nl turgor and temperature; Negative: Breakdown, Lesion Psych Exam: Positive: Memory Intact, Oriented x 3 Vital Signs Vital Signs Date Time Temp Pulse Resp B/P (MAP) Pulse Ox O2 Delivery O2 Flow Rate FiO2 03/16/21 17:16 97.8 03/16/21 16:33 59 22 162/75 (104) 93 Nasal Cannula 4.0 Laboratory Data Labs 24H Laboratory Tests 2 03/16/21 17:04: Immature Granulocyte % (Auto) 1.4, Neutrophils (%) (Auto) 72.4H, Lymphocytes (%) (Auto) 16.9L, Monocytes (%) (Auto) 8.9H, Eosinophils (%) (Auto) 0.0, Basophils (%) (Auto) 0.4, Neutrophils # (Auto) 6.5, Lymphocytes # (Auto) 1.5, Monocytes # (Auto) 0.8, Eosinophils # (Auto) 0.0, Basophils # (Auto) 0.0, Nucleated Red B lood Cells % (auto) 0.0, Blood Gas Bicarbonate Standard 25.1, Venous Blood pH 7.384, Venous Blood Partial Pressure CO2 47.0, Venous Blood Partial Pressure O2 34.7, Venous Blood Total Carbon Dioxide 28.9H, Venous Blood HCO3 27.4H, Venous Blood Oxygen Saturation 66.5, Venous Blood Base Excess 1.7, Anion Gap 6L, Glomerular Filtration Rate > 60.0, Lactic Acid Level 2.6*H, Calcium Level 9.0, Magnesium Level 2.0, Ferritin 497H, Total Bilirubin 1.1H, Aspartate Amino Transf (AST/SGOT) 46H, Alanine Aminotransferase (ALT/SGPT) 53, Alkaline Phosphatase 92, Lactate Dehydrogenase 352H, C-Reactive Protein, Quantitative 3.33H, Total Protein 6.8, Albumin 3.2, Albumin/Globulin Ratio 0.9 03/16/21 17:24: CBC/BMP Laboratory Tests 03/16/21 17:04 Microbiology Microbiology 03/16/21 Blood Culture, Received Pending 03/16/21 Blood Culture, Received Pending Assessment/Plan 60-year-old male with history of COPD, bullous emphysema, bilateral upper lobe wedge resections, SETH uses 2 L at night as did not tolerate CPAP, CAD, hypertension, hyperlipidemia, diabetes, chronic back pain who tested positive for Covid on 03/10/2021 and got monoclonal antibody on 03/12/2021 presented to the emergency room by ambulance for feeling worse with extreme weakness, poor appetite unable to eat or drink much in days, unable to take medications, worsening cough and shortness of breath. He has been short of breath on minimal exertion and today even at rest. He has not been producing any phlegm. He has been using his oxygen both during the day and night and he noted that his oxygen saturations at home with 2 L was at 88%. In the emergency room he was needing 4 L oxygen to maintain his saturations in 90 to 92% range. His respiratory rate was 22. He is admitted for COVID-19 pneumonia with acute hypoxic respiratory failure. COVID-19 pneumonia with acute hypoxic respiratory failure We will start the patient on dexamethasone twice a day, remdesivir, continue aspirin Covid labs Oxygen by nasal cannula target 88 to 92% We will check procalcitonin. If elevated will give antibiotics COPD/emphysema/history of bilateral pneumothoraxes/history of bilateral upper lobe resections Continue DuoNebs, Hypertension Continue nebivolol Hydralazine as needed Diabetes lispro as per sliding scale Fingerstick before meals and at bedtime SETH Did not tolerate CPAP uses 2 L oxygen at night Continuous oxygen monitoring Plan / VTE VTE Prophylaxis Ordered?: Yes Marisa Jiménez MD Mar 16, 2021 18:23
[2021-03-16 19:57] LABS: INR 1.01; PROTHROMBIN TIME 13.7 SECONDS (12.7-14.5)
[2021-03-16 19:58] LABS: PARTIAL THROMBOPLASTIN TIME 27.8 SECONDS (25.9-37.0)
[2021-03-16] MEDS ORDERED: REMDESIVIR 200 MG in NS 250 ML IV ONE (21:00)
[2021-03-16] MEDS: HumaLOG INSULIN (NovoLOG) PER UNIT SC SCH (21:00)
[2021-03-16] MEDS: IPRATROPIUM 0.5MG/ALBUTEROL 2.5MG INH SOL UD 3ML (DUONEB) NEB SCH (21:01)
[2021-03-16] MEDS: ASPIRIN 81MG ENTERIC TABLET PO SCH (21:04)
[2021-03-16 21:19] VITALS: BP 177/79
[2021-03-16] MEDS: **hydrALAZINE HCL** 25 MG TAB PO SCH (21:51)
[2021-03-16] MEDS ORDERED: SODIUM CHLORIDE 0.9% INJ 10 ML SYR IV ONE (22:00)
[2021-03-16 22:13] VITALS: O2SAT 92
[2021-03-16 22:51] VITALS: BP 157/70
[2021-03-16] MEDS: ACETAMINOPHEN TAB 650MG DOSE (2X325MG) PO PRN (23:14)
[2021-03-16] MEDS ORDERED: NS 500 ML IV ONE (23:25)
[2021-03-16 23:38] LABS: APPEARANCE, URINE HAZY (CLEAR); BACTERIA, URINE AUTO NEGATIVE (NEGATIVE); BILIRUBIN, URINE AUTO NEGATIVE (NEGATIVE); BLOOD, URINE BLOOD 1+ (NEGATIVE); COLOR, URINE AMBER (YELLOW); GLUCOSE, URINE (UA) AUTO 2+ mg/dL (NEGATIVE); KETONE, URINE AUTO 1+ mg/dL (NEGATIVE); LEUKOCYTE ESTERASE, URINE AUTO NEGATIVE (NEGATIVE); MUCUS, URINE SMALL (NEGATIVE); NITRITE, URINE AUTO NEGATIVE (NEGATIVE); PROTEIN, URINE AUTO 2+ mg/dL (NEGATIVE); RBC, URINE AUTO 1 /HPF (0-3); SPECIFIC GRAVITY URINE AUTO 1.029 (1.002-1.035); SQUAMOUS EPITHELIAL CELL UR AU 0 /HPF (0-6); WBC, URINE AUTO 0 /HPF (0-3)
[2021-03-17] MEDS: **hydrALAZINE HCL** 25 MG TAB PO SCH ×5 (00:54→23:21)
[2021-03-17] MEDS: GABAPENTIN 300 MG CAP PO SCH ×4 (01:03→21:51)
[2021-03-17] MEDS: IPRATROPIUM 0.5MG/ALBUTEROL 2.5MG INH SOL UD 3ML (DUONEB) NEB SCH ×4 (01:05→17:44)
[2021-03-17 04:00] VITALS: BP 162/56
[2021-03-17] MEDS: PANTOPRAZOLE 40MG VIAL (C9113 PER 1) IV SCH ×2 (05:23→17:13)
[2021-03-17 06:53] LABS: BASO % 0.2 % (0.0-1.0); HEMATOCRIT 45.7 % (42.0-52.0); HEMOGLOBIN 15.3 g/dl (13.5-17.5); LYMPH % 12.3 % (24.0-44.0); MEAN CORPUSCULAR HEMOGLOBIN 30.4 pg (27.0-33.0); MEAN CORPUSCULAR HGB CONC 33.5 g/dl (32.0-36.5); MEAN CORPUSCULAR VOLUME 90.9 fl (80.0-96.0); MONO # 0.6 10^3/uL (0.0-0.8); MONO % 6.8 % (2.0-8.0); NEUTROPHILS # 6.5 10^3/uL (1.5-8.5); NEUTROPHILS % 78.7 % (36.0-66.0); PLATELET COUNT, AUTOMATED 304 10^3/uL (150-450); RED BLOOD COUNT 5.03 10^6/uL (4.30-6.10); WHITE BLOOD COUNT 8.2 10^3/uL (4.0-10.0)
[2021-03-17 07:15] LABS: ALBUMIN 2.9 GM/DL (3.2-5.2); ALT/SGPT 51 U/L (12-78); BILIRUBIN,DIRECT 0.3 MG/DL (0.0-0.2); BLOOD UREA NITROGEN 14 MG/DL (7-18); CALCIUM LEVEL 9.2 MG/DL (8.8-10.2); CARBON DIOXIDE LEVEL 29 MEQ/L (21-32); CHLORIDE LEVEL 103 MEQ/L (98-107); CREATININE FOR GFR 0.81 MG/DL (0.70-1.30); GLOMERULAR FILTRATION RATE > 60.0 (>49); GLUCOSE, FASTING 274 MG/DL (70-100); MAGNESIUM LEVEL 2.3 MG/DL (1.8-2.4); POTASSIUM SERUM 3.8 MEQ/L (3.5-5.1); SODIUM LEVEL 139 MEQ/L (136-145); TOTAL PROTEIN 7.3 GM/DL (6.4-8.2)
[2021-03-17] MEDS: cefTRIAXone SOD 1 GM in D5W MINI-BAG PLUS 50 ML IV SCH (08:50)
[2021-03-17] MEDS: dexameTHASONE 4 MG/ML 1ML VIAL (J1100 PER 1MG) IV SCH ×2 (08:50→20:48)
[2021-03-17] MEDS: ENOXAPARIN 40MG/0.4ML SYRINGE (J1650 PER 10MG) SC SCH (08:52)
[2021-03-17] MEDS: ASPIRIN 81MG ENTERIC TABLET PO SCH (08:52)
[2021-03-17] MEDS: ASCORBIC ACID 500 MG TAB PO SCH (08:52)
[2021-03-17] MEDS: LEVEMIR (INSULIN DETEMIR) 1 UNITS/0.01ML SC SCH (08:53)
[2021-03-17] MEDS: HumaLOG INSULIN (NovoLOG) PER UNIT SC SCH ×4 (08:53→21:00)
[2021-03-17] MEDS: NEBIVOLOL 5 MG TAB (BYSTOLIC) PO SCH (09:04)
[2021-03-17] MEDS: AZITHROMYCIN INJ 500 MG, VIAL MATE ADAPTER 1 EACH in NS 250 ML IV SCH (10:04)
[2021-03-17] MEDS: glipiZIDE XL 5 MG TABCR PO SCH (10:16)
[2021-03-17 10:33] VITALS: O2SAT 93
[2021-03-17 13:59] VITALS: BP 157/74
--- NOTE | 2021-03-17 19:34 | ECGEPIP ---
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
[2021-03-17 20:00] VITALS: O2SAT 95
[2021-03-17 20:30] VITALS: BP 157/72
[2021-03-17] MEDS: ACETAMINOPHEN TAB 650MG DOSE (2X325MG) PO PRN (21:52)
[2021-03-17] MEDS: REMDESIVIR 100 MG in NS 250 ML IV SCH (21:53)
[2021-03-17] MEDS: SODIUM CHLORIDE 0.9% INJ 10 ML SYR IV SCH (23:21)
[2021-03-18] VITALS (7 sets, daily range): BP systolic 139–164; BP diastolic 65–82; O2SAT 92–95
[2021-03-18] MEDS: IPRATROPIUM 0.5MG/ALBUTEROL 2.5MG INH SOL UD 3ML (DUONEB) NEB SCH ×4 (02:05→20:00)
[2021-03-18] MEDS: PANTOPRAZOLE 40MG VIAL (C9113 PER 1) IV SCH ×2 (05:40→17:43)
[2021-03-18] MEDS: **hydrALAZINE HCL** 25 MG TAB PO SCH ×4 (05:40→23:39)
[2021-03-18 06:49] LABS: BASO % 0.2 % (0.0-1.0); HEMATOCRIT 44.5 % (42.0-52.0); HEMOGLOBIN 14.6 g/dl (13.5-17.5); LYMPH # 1.2 10^3/uL (1.5-5.0); LYMPH % 6.9 % (24.0-44.0); MEAN CORPUSCULAR HGB CONC 32.8 g/dl (32.0-36.5); MEAN CORPUSCULAR VOLUME 91.4 fl (80.0-96.0); MONO # 1.1 10^3/uL (0.0-0.8); MONO % 6.5 % (2.0-8.0); NEUTROPHILS # 14.1 10^3/uL (1.5-8.5); NEUTROPHILS % 85.2 % (36.0-66.0); PLATELET COUNT, AUTOMATED 347 10^3/uL (150-450); RED BLOOD COUNT 4.87 10^6/uL (4.30-6.10); WHITE BLOOD COUNT 16.6 10^3/uL (4.0-10.0)
[2021-03-18 06:59] LABS: INR 1.13; PROTHROMBIN TIME 14.9 SECONDS (12.7-14.5)
[2021-03-18 07:00] LABS: PARTIAL THROMBOPLASTIN TIME 27.7 SECONDS (25.9-37.0)
[2021-03-18 07:23] LABS: ALBUMIN 2.9 GM/DL (3.2-5.2); ALT/SGPT 40 U/L (12-78); BILIRUBIN,DIRECT 0.3 MG/DL (0.0-0.2); BILIRUBIN,TOTAL 0.9 MG/DL (0.2-1.0); BLOOD UREA NITROGEN 15 MG/DL (7-18); CALCIUM LEVEL 9.1 MG/DL (8.8-10.2); CARBON DIOXIDE LEVEL 30 MEQ/L (21-32); CHLORIDE LEVEL 106 MEQ/L (98-107); CREATININE FOR GFR 0.85 MG/DL (0.70-1.30); FERRITIN 338 NG/ML (26-388); GLOMERULAR FILTRATION RATE > 60.0 (>49); GLUCOSE, FASTING 205 MG/DL (70-100); LDH LACTATE DEHYDROGENASE 289 U/L (87-241); MAGNESIUM LEVEL 2.3 MG/DL (1.8-2.4); NT-PRO BNP 54 PG/ML (<125); POTASSIUM SERUM 3.9 MEQ/L (3.5-5.1); SODIUM LEVEL 141 MEQ/L (136-145); TOTAL PROTEIN 6.7 GM/DL (6.4-8.2)
[2021-03-18] MEDS: cefTRIAXone SOD 1 GM in D5W MINI-BAG PLUS 50 ML IV SCH (08:44)
[2021-03-18] MEDS: dexameTHASONE 4 MG/ML 1ML VIAL (J1100 PER 1MG) IV SCH ×2 (08:44→20:19)
[2021-03-18] MEDS: ASPIRIN 81MG ENTERIC TABLET PO SCH (08:49)
[2021-03-18] MEDS: ASCORBIC ACID 500 MG TAB PO SCH (08:49)
[2021-03-18] MEDS: ENOXAPARIN 40MG/0.4ML SYRINGE (J1650 PER 10MG) SC SCH (08:49)
[2021-03-18] MEDS: GABAPENTIN 300 MG CAP PO SCH ×2 (08:50→20:20)
[2021-03-18] MEDS: NEBIVOLOL 5 MG TAB (BYSTOLIC) PO SCH (08:50)
[2021-03-18] MEDS: glipiZIDE XL 5 MG TABCR PO SCH (08:51)
[2021-03-18] MEDS: HumaLOG INSULIN (NovoLOG) PER UNIT SC SCH ×4 (08:51→20:21)
[2021-03-18] MEDS: LEVEMIR (INSULIN DETEMIR) 1 UNITS/0.01ML SC SCH (08:51)
[2021-03-18] MEDS: AZITHROMYCIN INJ 500 MG, VIAL MATE ADAPTER 1 EACH in NS 250 ML IV SCH (09:00)
[2021-03-18] MEDS ORDERED: FUROSEMIDE 40MG/4ML VIAL (J1940) IV ONE (11:00)
[2021-03-18] MEDS: ACETAMINOPHEN TAB 650MG DOSE (2X325MG) PO PRN (11:23)
--- NOTE | 2021-03-18 12:49 | IPNPDOC ---
Subjective Date Seen The patient was seen on 03/17/21. Subjective Chief Complaint/HPI Patient continues to feel unwell this morning he feels he is very weak tired and dehydrated. His oxygen requirement has not worsened from yesterday. Objective Physical Examination General Exam: Positive: Alert, Cooperative, No Acute Distress Eye Exam: Positive: PERRLA, Conjunctiva & lids normal, EOMI; Negative: Sclera icteric Neck Exam: Positive: Supple; Negative: JVD, thyromegaly Chest Exam: Positive: Diminished, Other (Bilateral crackles at the bases); Negative: Rales, Rhonchi, Wheezing Heart Exam: Positive: Rate Normal, Regular Rhythm, Normal S1, Normal S2; Negative: Murmurs, Rubs Telemetry: Positive: No significant arrhythmia Abdomen Exam: Positive: Normal bowel sounds, Soft, Other (Obese); Negative: Tenderness Extremity Exam: Negative: Clubbing, Cyanosis, Edema Skin Exam: Positive: Nl turgor and temperature; Negative: Breakdown, Lesion Psych Exam: Positive: Memory Intact, Oriented x 3 Assessment /Plan Assessment 60-year-old male with history of COPD, bullous emphysema, bilateral upper lobe wedge resections, SETH uses 2 L at night as did not tolerate CPAP, CAD, hypertension, hyperlipidemia, diabetes, chronic back pain who tested positive for Covid on 03/10/2021 and got monoclonal antibody on 03/12/2021 presented to the emergency room by ambulance for feeling worse with extreme weakness, poor appetite unable to eat or drink much in days, unable to take medications, worsening cough and shortness of breath. He has been short of breath on minimal exertion and today even at rest. He has not been producing any phlegm. He has been using his oxygen both during the day and night and he noted that his oxygen saturations at home with 2 L was at 88%. In the emergency room he was needing 4 L oxygen to maintain his saturations in 90 to 92% range. His respiratory rate was 22. He is admitted for COVID-19 pneumonia with acute hypoxic respiratory failure. COVID-19 pneumonia with acute hypoxic respiratory failure on dexamethasone twice a day, remdesivir, continue aspirin Covid labs Oxygen by nasal cannula target 88 to 92% Procalcitonin elevated at 1.28. May have underlying secondary bacterial pneumonia ceftriaxone and azithromycin COPD/emphysema/history of bilateral pneumothoraxes/history of bilateral upper lobe wedge resections Continue DuoNebs, Hypertension Continue nebivolol Hydralazine as needed Diabetes lispro as per sliding scale Continue glipizide. Fingerstick before meals and at bedtime SETH Did not tolerate CPAP uses 2 L oxygen at night Continuous oxygen monitoring Plan/VTE VTE Prophylaxis Ordered?: Yes VS, I&O, 24H, Fishbone Vital Signs/I&O Vital Signs Date Time Temp Pulse Resp B/P (MAP) Pulse Ox O2 Delivery O2 Flow Rate FiO2 03/17/21 05:14 95 Nasal Cannula 3.0 03/17/21 04:00 97.1 87 18 162/56 (91) I&O- Last 24 Hours up to 6 AM 03/17/21 06:00 Intake Total 560 ml Output Total 380 ml Balance 180 ml Laboratory Data 24H LABS Laboratory Tests 2 03/16/21 17:04: Immature Granulocyte % (Auto) 1.4, Neutrophils (%) (Auto) 72.4H, Lymphocytes (%) (Auto) 16.9L, Monocytes (%) (Auto) 8.9H, Eosinophils (%) (Auto) 0.0, Basophils (%) (Auto) 0.4, Neutrophils # (Auto) 6.5, Lymphocytes # (Auto) 1.5, Monocytes # (Auto) 0.8, Eosinophils # (Auto) 0.0, Basophils # (Auto) 0.0, Nucleated Red Blood Cells % (auto) 0.0, Blood Gas Bicarbonate Standard 25.1, Venous Blood pH 7.384, Venous Blood Partial Pressure CO2 47.0, Venous Blood Partial Pressure O2 34.7, Venous Blood Total Carbon Dioxide 28.9H, Venous Blood HCO3 27.4H, Venous Blood Oxygen Saturation 66.5, Venous Blood Base Excess 1.7, Anion Gap 6L, G lomerular Filtration Rate > 60.0, Lactic Acid Level 2.6*H, Calcium Level 9.0, Magnesium Level 2.0, Ferritin 497H, Total Bilirubin 1.1H, Aspartate Amino Transf (AST/SGOT) 46H, Alanine Aminotransferase (ALT/SGPT) 53, Alkaline Phosphatase 92, Lactate Dehydrogenase 352H, C-Reactive Protein, Quantitative 3.33H, Total Protein 6.8, Albumin 3.2, Albumin/Globulin Ratio 0.9, Procalcitonin 1.28 03/16/21 17:11: POC Troponin I (Misc) 0.01 03/16/21 17:24: Prothrombin Time 13.7, Prothromb Time International Ratio 1.01, Activated Partial Thromboplast Time 27.8, Fibrinogen 701H 03/16/21 19:27: Bedside Glucose (Misc Panel) 198H 03/16/21 22:25: Lactic Acid Followup at 4 Hours 4.7*H 03/16/21 22:46: Urine Color [place], Urine Appearance HAZY, Urine pH 5.0, Urine Specific [place] 1.029, Urine Protein 2+H, Urine Glucose (Auto)(UA) 2+H, Urine Ketones (Auto) 1+H, Urine Blood 1+H, Urine Nitrite NEGATIVE, Urine Bilirubin NEGATIVE, Urine Urobilinogen 4.0H, Urine Leukocyte Esterase (Auto) NEGATIVE, Urine WBC (Auto) 0, Urine RBC (Auto) 1, Urine Hyaline Casts (Auto) 0, Urine Bacteria (Auto) NEGATIVE, Urine Squamous Epithelial Cells 0, Urine Mucus (Auto) SMALL, Urine Sperm (Auto) 03/17/21 06:29: Immature Granulocyte % (Auto) 2.0, Neutrophils (%) (Auto) 78.7H, Lymphocytes (%) (Auto) 12.3L, Monocytes (%) (Auto) 6.8, Eosinophils (%) (Auto) 0.0, Basophils (%) (Auto) 0.2, Neutrophils # (Auto) 6.5, Lymphocytes # (Auto) 1.0L, Monocytes # (Auto) 0.6, Eosinophils # (Auto) 0.0, Basophils # (Auto) 0.0, Nucleated Red Blood Cells % (auto) 0.0, Anion Gap 7L, Glomerular Filtration Rate > 60.0, Lactic Acid Level 2.0, Calcium Level 9.2, Magnesium Level 2.3, Total Bilirubin 1.0, Direct Bilirubin 0.3H, Aspartate Amino Transf (AST/SGOT) 31, Alanine Aminotransferase (ALT/SGPT) 51, Alkaline Phosphatase 86, Total Protein 7.3, Albumin 2.9L, Albumin/Globulin Ratio 0.7 CBC/BMP Laboratory Tests 03/16/21 17:04 03/17/21 06:29 Microbiology Microbiology 03/16/21 Blood Culture, Received Pending 03/16/21 Blood Culture, Received Pending Marisa Jiménez MD Mar 17, 2021 07:32
--- NOTE | 2021-03-18 12:53 | IPNPDOC ---
Subjective Date Seen The patient was seen on 03/18/21. Subjective Chief Complaint/HPI He reports that he is feeling better this morning. He is breathing is easier. And he has been able to cough up some phlegm. There has been no worsening in his oxygenation and he is needing 3 to 4 L of oxygen at this time. Patient says that his appetite is better this now and he has been able to eat better. Objective Physical Examination General Exam: Positive: Alert, Cooperative, No Acute Distress Eye Exam: Positive: PERRLA, Conjunctiva & lids normal, EOMI; Negative: Sclera icteric Neck Exam: Positive: Supple; Negative: JVD, thyromegaly Chest Exam: Positive: Diminished, Other (Bilateral crackles at the bases); Negative: Rales, Rhonchi, Wheezing Heart Exam: Positive: Rate Normal, Regular Rhythm, Normal S1, Normal S2; Negative: Murmurs, Rubs Telemetry: Positive: No significant arrhythmia Abdomen Exam: Positive: Normal bowel sounds, Soft, Other (Obese); Negative: Tenderness Extremity Exam: Negative: Clubbing, Cyanosis, Edema Skin Exam: Positive: Nl turgor and temperature; Negative: Breakdown, Lesion Psych Exam: Positive: Memory Intact, Oriented x 3 Assessment /Plan Assessment 60-year-old male with history of COPD, bullous emphysema, bilateral upper lobe wedge resections, SETH uses 2 L at night as did not tolerate CPAP, CAD, hyperte nsion, hyperlipidemia, diabetes, chronic back pain who tested positive for Covid on 03/10/2021 and got monoclonal antibody on 03/12/2021 presented to the emergency room by ambulance for feeling worse with extreme weakness, poor appetite unable to eat or drink much in days, unable to take medications, worsening cough and shortness of breath. He has been short of breath on minimal exertion and today even at rest. He has not been producing any phlegm. He has been using his oxygen both during the day and night and he noted that his oxygen saturations at home with 2 L was at 88%. In the emergency room he was needing 4 L oxygen to maintain his saturations in 90 to 92% range. His respiratory rate was 22. He is admitted for COVID-19 pneumonia with acute hypoxic respiratory failure. COVID-19 pneumonia with acute hypoxic respiratory failure on dexamethasone twice a day, remdesivir, continue aspirin Covid labs Oxygen by nasal cannula target 88 to 92% Procalcitonin elevated at 1.28. May have underlying secondary bacterial pneumonia ceftriaxone and azithromycin COPD/emphysema/history of bilateral pneumothoraxes/history of bilateral upper lobe wedge resections Continue DuoNebs, Hypertension Continue nebivolol Hydralazine as needed Diabetes lispro as per sliding scale Continue glipizide. Fingerstick before meals and at bedtime SETH Did not tolerate CPAP uses 2 L oxygen at night Continuous oxygen monitoring Disposition: Home in the next 24 to 48 hours will likely need home oxygen with portability. Patient reports that he has his own personal oxygen concentrator for use at night only. Plan/VTE VTE Prophylaxis Ordered?: Yes VS, I&O, 24H, Fishbone Vital Signs/I&O Vital Signs Date Time Temp Pulse Resp B/P (MAP) Pulse Ox O2 Delivery O2 Flow Rate FiO2 03/18/21 09:00 95 Nasal Cannula 4.0 03/18/21 08:50 102 198/78 03/18/21 08:00 96.4 18 I&O- Last 24 Hours up to 6 AM 03/18/21 06:00 Intake Total 720 ml Output Total 1000 ml Balance -280 ml Laboratory Data 24H LABS Laboratory Tests 2 03/17/21 16:56: Bedside Glucose (Misc Panel) 231H 03/17/21 19:46: Bedside Glucose (Misc Panel) 208H 03/18/21 06:24: Immature Granulocyte % (Auto) 1.2, Neutrophils (%) (Auto) 85.2H, Lymphocytes (%) (Auto) 6.9L, Monocytes (%) (Auto) 6.5, Eosinophils (%) (Auto) 0.0, Basophils (%) (Auto) 0.2, Neutrophils # (Auto) 14.1H, Lymphocytes # (Auto) 1.2L, Monocytes # (Auto) 1.1H, Eosinophils # (Auto) 0.0, Basophils # (Auto) 0.0, Nucleated Red Bl ood Cells % (auto) 0.0, Prothrombin Time 14.9H, Prothromb Time International Ratio 1.13, Activated Partial Thromboplast Time 27.7, Fibrinogen 537H, Anion Gap 5L, Glomerular Filtration Rate > 60.0, Calcium Level 9.1, Magnesium Level 2.3, Ferritin 338, Total Bilirubin 0.9, Direct Bilirubin 0.3H, Aspartate Amino Transf (AST/SGOT) 22, Alanine Aminotransferase (ALT/SGPT) 40, Alkaline Phosphatase 77, Lactate Dehydrogenase 289H, Total Creatine Kinase 193, EY-Iho-T-Type Natriuretic Peptide 54, Total Protein 6.7, Albumin 2.9L, Albumin/Globulin Ratio 0.8 03/18/21 12:31: Bedside Glucose (Misc Panel) 190H CBC/BMP Laboratory Tests 03/18/21 06:24 Microbiology Microbiology 03/16/21 Blood Culture - Preliminary, Resulted No growth after 24 hours . All specim... 03/16/21 Blood Culture - Preliminary, Resulted No growth after 24 hours . All specim... Marisa Jiménez MD Mar 18, 2021 12:52
[2021-03-18] MEDS: REMDESIVIR 100 MG in NS 250 ML IV SCH (20:22)
[2021-03-18] MEDS ORDERED: MAALOX 30 ML SUSP *UDC PO PRN (20:55)
[2021-03-18] MEDS: SODIUM CHLORIDE 0.9% INJ 10 ML SYR IV SCH (22:39)
[2021-03-19] VITALS: O2SAT 92
[2021-03-19] MEDS: IPRATROPIUM 0.5MG/ALBUTEROL 2.5MG INH SOL UD 3ML (DUONEB) NEB SCH ×3 (01:19→14:00)
[2021-03-19 04:00] VITALS: BP 155/72; O2SAT 93
[2021-03-19 06:12] VITALS: BP 168/73
[2021-03-19] MEDS: **hydrALAZINE HCL** 25 MG TAB PO SCH ×2 (06:13→12:55)
[2021-03-19] MEDS: PANTOPRAZOLE 40MG VIAL (C9113 PER 1) IV SCH (06:13)
[2021-03-19 06:56] LABS: BASO % 0.2 % (0.0-1.0); HEMATOCRIT 46.6 % (42.0-52.0); HEMOGLOBIN 15.4 g/dl (13.5-17.5); LYMPH # 1.3 10^3/uL (1.5-5.0); LYMPH % 6.6 % (24.0-44.0); MEAN CORPUSCULAR HEMOGLOBIN 30.6 pg (27.0-33.0); MEAN CORPUSCULAR VOLUME 92.6 fl (80.0-96.0); MONO # 1.3 10^3/uL (0.0-0.8); MONO % 6.8 % (2.0-8.0); NEUTROPHILS # 16.7 10^3/uL (1.5-8.5); NEUTROPHILS % 84.6 % (36.0-66.0); PLATELET COUNT, AUTOMATED 414 10^3/uL (150-450); RED BLOOD COUNT 5.03 10^6/uL (4.30-6.10); WHITE BLOOD COUNT 19.7 10^3/uL (4.0-10.0)
[2021-03-19 07:29] LABS: BLOOD UREA NITROGEN 20 MG/DL (7-18); CALCIUM LEVEL 9.1 MG/DL (8.8-10.2); CARBON DIOXIDE LEVEL 31 MEQ/L (21-32); CHLORIDE LEVEL 103 MEQ/L (98-107); CREATININE FOR GFR 0.84 MG/DL (0.70-1.30); GLOMERULAR FILTRATION RATE > 60.0 (>49); GLUCOSE, FASTING 202 MG/DL (70-100); MAGNESIUM LEVEL 2.3 MG/DL (1.8-2.4); POTASSIUM SERUM 4.7 MEQ/L (3.5-5.1); SODIUM LEVEL 141 MEQ/L (136-145)
[2021-03-19 08:00] VITALS: O2SAT 94
[2021-03-19] MEDS ORDERED: LISI10TA22 PO (08:37)
[2021-03-19] MEDS ORDERED: AZIT500T5 PO (08:37)
[2021-03-19] MEDS ORDERED: PANT40TA29 PO (08:37)
[2021-03-19] MEDS ORDERED: CEFD1CAP8 PO (08:37)
[2021-03-19] MEDS: ENOXAPARIN 40MG/0.4ML SYRINGE (J1650 PER 10MG) SC SCH (09:07)
[2021-03-19] MEDS: HumaLOG INSULIN (NovoLOG) PER UNIT SC SCH ×2 (09:08→12:50)
[2021-03-19] MEDS: LEVEMIR (INSULIN DETEMIR) 1 UNITS/0.01ML SC SCH (09:08)
[2021-03-19] MEDS: ASCORBIC ACID 500 MG TAB PO SCH (09:09)
[2021-03-19] MEDS: ASPIRIN 81MG ENTERIC TABLET PO SCH (09:09)
[2021-03-19] MEDS: GABAPENTIN 300 MG CAP PO SCH (09:09)
[2021-03-19] MEDS: NEBIVOLOL 5 MG TAB (BYSTOLIC) PO SCH (09:11)
[2021-03-19] MEDS: cefTRIAXone SOD 1 GM in D5W MINI-BAG PLUS 50 ML IV SCH (09:11)
[2021-03-19] MEDS: glipiZIDE XL 5 MG TABCR PO SCH (09:11)
[2021-03-19] MEDS: dexameTHASONE 4 MG/ML 1ML VIAL (J1100 PER 1MG) IV SCH (09:18)
[2021-03-19] MEDS: AZITHROMYCIN INJ 500 MG, VIAL MATE ADAPTER 1 EACH in NS 250 ML IV SCH (10:25)
--- NOTE | 2021-03-19 10:49 | DS.PDOC ---
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 HISTORY OF PRESENT ILLNESS: 60-year-old M with history of COPD, bullous emphysema, bilateral upper lobe wedge resections, SETH uses 2 L at night as did not tolerate CPAP, CAD, hypertension, hyperlipidemia, diabetes, chronic back pain who tested positive for Covid on 03/10/2021 and got monoclonal antibody on 03/12/2021 and now presented to the emergency room by ambulance for feeling worse with extreme weakness, poor appetite unable to eat or drink much in days, unable to take medications, worsening cough and shortness of breath. HOSPITAL COURSE: In the emergency room he was needing 4 L oxygen to maintain his saturations in 90 to 92% range. His respiratory rate was 22. He is admitted for COVID-19 pneumonia with acute hypoxic respiratory failure. He ultimately was started on treatment of covid-19 PNA and presumed superimposed bacterial CAP and placed on supplemental O2 for acute hypoxemic respiratory failure. He is now stably on 2 to 3L NC and is now being discharged home with home O2 with portability, a short prednisone taper as previously prescribed (no new prescription), CAP antibiotic course and close PCP follow up within 7d. DISCHARGE MEDICATIONS: Please see below. ALLERGIES: Please see below. PHYSICAL EXAMINATION ON DISCHARGE: VITAL SIGNS: Please see below. General: Alert, Cooperative, No Acute Distress Eyes: PERRLA, Conjunctiva & lids normal, EOMI, anicteric Neck: Supple, no JVD Chest: Diminished, with Bilateral crackles at the bases, no wheezing or rhonchi Heart: Rate Normal, Regular Rhythm, Normal S1, Normal S2, no m/r/g Abdomen: Normal bowel sounds, soft, obese, NTND Extremities: WWP, no edema Psych: Memory Intact, Alert and Oriented x 3 LABORATORY DATA: Please see below. IMAGING: CXR: Bilateral opacities (left greater than right) are consistent with the given history of COVID-19 pulmonary disease. No effusion. No pneumothorax. Mediastinum and cardiac silhouette are stable. Skeletal structures are intact. IMPRESSION: Bilateral airspace disease consistent with COVID-19 pulmonary disease. PROGNOSIS: Good ACTIVITY: As tolerated DIET: consistent carb, 2g sodium DISCHARGE PLAN: Home with supplemental O2, a short prednisone taper as previously prescribed (no new prescription), CAP antibiotic course and close PCP follow up within 7d DISPOSITION: Home DISCHARGE INSTRUCTIONS: Home with supplemental O2, a short prednisone taper as previously prescribed (no new prescription), CAP antibiotic course and close PCP follow up within 7d ITEMS TO FOLLOWUP ON ON OUTPATIENT: Covid-19 PNA resolution CAP resolution Acute hypoxemic respiratory failure resolution DISCHARGE CONDITION: Stable TIME SPENT ON DISCHARGE: 35 minutes. Vital Signs/I&Os Vital Signs Date Time Temp Pulse Resp B/P (MAP) Pulse Ox O2 Delivery O2 Flow Rate FiO2 03/19/21 06:13 168/73 03/19/21 04:00 97.4 81 20 93 Nasal Cannula 3.0 I&O- Last 24 Hours up to 6 AM 03/19/21 06:00 Intake Total 1145 ml Output Total 1800 ml Balance -655 ml Laboratory Data Labs 24H Laboratory Tests 2 03/18/21 12:31: Bedside Glucose (Misc Panel) 190H 03/18/21 17:12: Bedside Glucose (Misc Panel) 217H 03/18/21 20:13: Bedside Glucose (Misc Panel) 193H 03/19/21 05:34: Immature Granulocyte % (Auto) 1.8, Neutrophils (%) (Auto) 84.6H, Lymphocytes (%) (Auto) 6.6L, Monocytes (%) (Auto) 6.8, Eosinophils (%) (Auto) 0.0, Basophils (%) (Auto) 0.2, Neutrophils # (Auto) 16.7H, Lymphocytes # (Auto) 1.3L, Monocytes # (Auto) 1.3H, Eosinophils # (Auto) 0.0, Basophils # (Auto) 0.0, Nucleated Red Blood Cells % (auto) 0.0, Anion Gap 7L, Glomerular Filtration Rate > 60.0, Calcium Level 9.1, Magnesium Level 2.3 CBC/BMP Laboratory Tests 03/19/21 05:34 FSBS Laboratory Tests Test 03/18/21 12:31 03/18/21 17:12 03/18/21 20:13 Range/Units Bedside Glucose (Misc Panel) 190 217 193 80-115 MG/DL Microbiology Microbiology 03/16/21 Blood Culture - Preliminary, Resulted No Growth after 48 hours. All Specime... 03/16/21 Blood Culture - Preliminary, Resulted No Growth after 48 hours. All Specime... Discharge Medications Scheduled Ascorbic Acid (Vitamin C) 500 Mg Tablet, 1,000 MG PO DAILY, (Reported) Aspirin (Aspirin) 81 Mg Chw, 81 MG PO DAILY, (Reported) Azithromycin (Azithromycin) 500 Mg Tablet, 1 TAB PO DAILY Cefdinir (Cefdinir) 300 Mg Capsule, 300 MG PO BID Gabapentin (Gabapentin) 300 Mg Capsule, 300 MG PO TID, (Reported) Glipizide (Glipizide ER) 5 Mg Tab.er.24, 5 MG PO DAILY, (Reported) Lisinopril (Lisinopril) 10 Mg Tablet, 1 TAB PO DAILY Nebivolol HCl (Bystolic) 10 Mg Tablet, 10 MG PO DAILY, (Reported) Pantoprazole Sodium (Pantoprazole Sodium) 40 Mg Tablet.dr, 1 TAB PO DAILY Prednisone (Prednisone) 10 Mg Tablet, 40 MG PO DAILY, (Reported) Take 4 tabs daily x 5 days, then 3 tabs daily x 5 days, then 2 tabs daily x 5 days, then 1 tab daily x 5 days and then 1/2 tablet daily for 5 days then stop Scheduled PRN Albuterol Sulf (Albuterol Sulfate) 2.5 Mg/3 Ml Vial.neb, 2.5 MG INH for SHORTNESS OF BREATH, (Reported) Allergies Coded Allergies: morphine (Verified Allergy, Intermediate, 03/16/21) dyspnea NSAIDS (Non-Steroidal Anti-Inflamma (Verified Allergy, Unknown, 08/28/18) clavulanic acid (Verified Allergy, Unknown, 08/28/18) metformin (Verified Allergy, Unknown, 08/28/18) tramadol (Verified Adverse Reaction, Intermediate, 03/16/21) syncope amoxicillin (Verified Adverse Reaction, Mild, NAUSEA, VOMITING, 03/16/21) cyclobenzaprine (Verified Adverse Reaction, Mild, GI UPSET, 03/16/21) KAYLEE CASTRO MD Mar 19, 2021 08:32
[2021-03-19 12:00] VITALS: O2SAT 96
[2021-03-19 12:55] VITALS: BP 166/76
[2021-03-21 16:07] LABS: BODY FLUID CULTURE Not indicated. (.); LEGIONELLA ANTIGEN URINE Negative (Negative); ORGANISM ID Not indicated. (.); SPECIMEN SOURCE Urine (.); URINE STREP PNEUMONIAE ANTIGEN Negative (Negative)
== END 2021-03-19 12:30 | disposition home or self-care (01) | DRG 137 ==
LOC: EDBD 16:25 → M ED 16:25 → M ED INP 18:23 → ENRESERV 19:32 → M 4MAIN 21:19
PROVIDERS: ADMIT Internal Medicine Nephrology; ATTEND Internal Medicine
DX: U07.1 COVID-19 (principal); J96.01 Acute respiratory failure with hypoxia; J12.82 Pneumonia due to coronavirus disease 2019; J15.9 Unspecified bacterial pneumonia; J44.9 Chronic obstructive pulmonary disease, unspecified; J44.0 Chronic obstructive pulmonary disease with (acute) lower respiratory infection; E11.9 Type 2 diabetes mellitus without complications; I10 Essential (primary) hypertension; K21.9 Gastro-esophageal reflux disease without esophagitis; K44.9 Diaphragmatic hernia without obstruction or gangrene; E78.5 Hyperlipidemia, unspecified; G47.33 Obstructive sleep apnea (adult) (pediatric); I25.10 Atherosclerotic heart disease of native coronary artery without angina pectoris; L21.8 Other seborrheic dermatitis; L82.1 Other seborrheic keratosis; Z79.82 Long term (current) use of aspirin; Z79.899 Other long term (current) drug therapy; Z88.5 Allergy status to narcotic agent; Z88.0 Allergy status to penicillin; Z88.8 Allergy status to other drugs, medicaments and biological substances

== ENCOUNTER → 2021-05-18 | Outpatient (CLI) | payer BC, OTHER ==
[~2021-05-18] MED LIST changes: +AZIT500T5 PO; +BYST10TA2 PO; +CEFD300C41 PO; +LISI10TA22 PO; +PANT40TA29 PO; +PRED10TA2 PO
== END ==
LOC: M PLAIMG 10:56
PROVIDERS: ATTEND Internal Medicine Pulmonary Disease
DX: J98.4 Other disorders of lung (principal); J43.9 Emphysema, unspecified; J47.9 Bronchiectasis, uncomplicated; J84.10 Pulmonary fibrosis, unspecified

== ENCOUNTER → 2021-06-10 | Outpatient (CLI) | payer BC, OTHER ==
[2021-06-10 14:26] LABS: HEMATOCRIT 46.7 % (42.0-52.0); HEMOGLOBIN 15.5 g/dl (13.5-17.5); MEAN CORPUSCULAR HEMOGLOBIN 30.9 pg (27.0-33.0); MEAN CORPUSCULAR HGB CONC 33.2 g/dl (32.0-36.5); MEAN CORPUSCULAR VOLUME 93.2 fl (80.0-96.0); PLATELET COUNT, AUTOMATED 231 10^3/uL (150-450); RED BLOOD COUNT 5.01 10^6/uL (4.30-6.10); WHITE BLOOD COUNT 10.6 10^3/uL (4.0-10.0)
[2021-06-10 14:59] LABS: BLOOD UREA NITROGEN 11 MG/DL (7-18); CALCIUM LEVEL 9.2 MG/DL (8.8-10.2); CARBON DIOXIDE LEVEL 33 MEQ/L (21-32); CHLORIDE LEVEL 105 MEQ/L (98-107); CREATININE FOR GFR 0.81 MG/DL (0.70-1.30); GLOMERULAR FILTRATION RATE > 60.0 (>49); GLUCOSE, FASTING 241 MG/DL (70-100); NT-PRO BNP 40 PG/ML (<125); POTASSIUM SERUM 4.4 MEQ/L (3.5-5.1); SODIUM LEVEL 142 MEQ/L (136-145)
== END ==
LOC: M WUC 13:18
PROVIDERS: ATTEND Nurse Practitioner Family
DX: R06.02 Shortness of breath (principal)

== ENCOUNTER → 2021-11-25 | Outpatient (CLI) | payer BC, OTHER ==
[~2021-11-25] MED LIST changes: +ALBU2.5V10 INH; -ALBU83IN INH
== END ==
LOC: M RAD 09:38
PROVIDERS: ATTEND Family Medicine
DX: K76.0 Fatty (change of) liver, not elsewhere classified (principal); R10.11 Right upper quadrant pain

== ENCOUNTER → 2022-02-14 | Outpatient (REF) | payer OTHER, BC ==
[2022-02-14 23:01] LABS: RSV AMPLIFICATION NEGATIVE (NEGATIVE)
== END ==
LOC: M LAB REF 22:00
PROVIDERS: ATTEND Physician Assistant Medical
DX: R05.9 Cough, unspecified (principal)

== ENCOUNTER → 2022-03-29 | Outpatient (CLI) | payer BC, OTHER | LOC: M WUC 11:12 | PROVIDERS: ATTEND Physician Assistant | DX: S93.402A Sprain of unspecified ligament of left ankle, initial encounter (principal); S90.32XA Contusion of left foot, initial encounter; M19.072 Primary osteoarthritis, left ankle and foot; X58.XXXA Exposure to other specified factors, initial encounter; Y92.9 Unspecified place or not applicable; Y93.9 Activity, unspecified; Y99.9 Unspecified external cause status ==

== ENCOUNTER 2022-05-15 17:39 | Emergency (ER) | payer BC, OTHER ==
[~2022-05-15] VITALS: Ht 180.3 cm; Wt 102.3 kg
[2022-05-15] MEDS ORDERED: fentaNYL 100 MCG/2 ML INJECTION IV ONE ×2 (18:10→21:10)
[2022-05-15 18:23] LABS: BASO # 0.1 10^3/uL (0.0-0.2); BASO % 0.5 % (0.0-1.0); EOS # 0.1 10^3/uL (0.0-0.5); EOS % 0.4 % (0.0-3.0); HEMATOCRIT 49.1 % (42.0-52.0); HEMOGLOBIN 16.6 g/dl (13.5-17.5); LYMPH # 2.6 10^3/uL (1.5-5.0); LYMPH % 16.9 % (24.0-44.0); MEAN CORPUSCULAR HEMOGLOBIN 30.5 pg (27.0-33.0); MEAN CORPUSCULAR HGB CONC 33.8 g/dl (32.0-36.5); MEAN CORPUSCULAR VOLUME 90.1 fl (80.0-96.0); MONO # 1.1 10^3/uL (0.0-0.8); MONO % 6.9 % (2.0-8.0); NEUTROPHILS # 11.4 10^3/uL (1.5-8.5); NEUTROPHILS % 74.3 % (36.0-66.0); PLATELET COUNT, AUTOMATED 249 10^3/uL (150-450); RED BLOOD COUNT 5.45 10^6/uL (4.30-6.10); WHITE BLOOD COUNT 15.3 10^3/uL (4.0-10.0)
[2022-05-15 18:36] LABS: INR 0.97; PROTHROMBIN TIME 13.1 SECONDS (12.5-14.5)
[2022-05-15 18:37] LABS: PARTIAL THROMBOPLASTIN TIME 26.7 SECONDS (24.8-34.2)
[2022-05-15 18:47] LABS: CK-MB VALUE MASS < 1.0 NG/ML (<3.6); LIPASE 26 U/L (12-53)
[2022-05-15 18:50] LABS: ALBUMIN 3.9 G/DL (3.2-5.2); ALKALINE PHOSPHATASE 119 U/L (46-116); ALT/SGPT 43 U/L (7.0-40); AST/SGOT 31 U/L (<34); BILIRUBIN,DIRECT 0.2 MG/DL (<0.4); BILIRUBIN,TOTAL 0.8 MG/DL (0.3-1.2); BLOOD UREA NITROGEN 11 MG/DL (9-23); CALCIUM LEVEL 9.2 MG/DL (8.3-10.6); CARBON DIOXIDE LEVEL 30 MMOL/L (20-31); CHLORIDE LEVEL 104 MMOL/L (98-107); CPK CREATINE PHOSPHOKINASE 102 U/L (46-171); CREATININE FOR GFR 0.71 MG/DL (0.70-1.30); GLOMERULAR FILTRATION RATE > 60.0 (>49); GLUCOSE, FASTING 140 MG/DL (74-106); MB/CK RELATIVE INDEX 0.98 (< OR =4); SODIUM LEVEL 141 MMOL/L (136-145); TOTAL PROTEIN 6.9 G/DL (5.7-8.2)
[2022-05-15 18:51] LABS: FREE T4 1.19 NG/DL (0.89-1.76)
[2022-05-15 18:52] LABS: THYROID STIMULATING HORMONE 1.388 uIU/ML (0.55-4.78)
[2022-05-15] MEDS ORDERED: ISOVUE-370 76% 100ML VIAL As Ordered ONE (18:57)
[2022-05-15 19:50] LABS: CK-MB VALUE MASS 1.2 NG/ML (<3.6)
[2022-05-15 19:51] LABS: CPK CREATINE PHOSPHOKINASE 99 U/L (46-171); MB/CK RELATIVE INDEX 1.21 (< OR =4)
[2022-05-15] MEDS ORDERED: CYCL-707 PO (21:34)
[2022-05-15] MEDS ORDERED: CYCLOBENZAPRINE 10MG TABLET PO ONE (21:35)
[2022-05-15] MEDS ORDERED: OXYCODONE/APAP 5MG/325MG(HOME DOSE PACK) PO ONE (21:55)
[2022-05-15 21:58] VITALS: BP 148/84
== END 2022-05-15 22:02 | disposition home or self-care (01) ==
LOC: M ED 17:39
DX: R07.9 Chest pain, unspecified (principal); I10 Essential (primary) hypertension; K21.9 Gastro-esophageal reflux disease without esophagitis; J44.9 Chronic obstructive pulmonary disease, unspecified; Z87.891 Personal history of nicotine dependence; Z79.899 Other long term (current) drug therapy; Z88.6 Allergy status to analgesic agent; Z88.0 Allergy status to penicillin; Z88.2 Allergy status to sulfonamides; Z88.5 Allergy status to narcotic agent
CPT/HCPCS: 71046; 71275; 80048; 80076; 82550; 82553; 83690; 84439; 84443; 84484; 85025; 85610; 85730; 93005; 93041; 94760; 96374; 96376; 99285; J3010

== ENCOUNTER → 2022-08-03 | Outpatient (CLI) | payer BC, OTHER ==
[~2022-08-03] MED LIST changes: +ASPI-655 PO; -ASPI1CHW3 PO; +CYCL-707 PO
== END ==
LOC: M RAD 08:02
PROVIDERS: ATTEND Internal Medicine Pulmonary Disease
DX: Z12.2 Encounter for screening for malignant neoplasm of respiratory organs (principal); Z87.891 Personal history of nicotine dependence

== ENCOUNTER → 2023-05-12 | Outpatient (CLI) | payer BC, OTHER ==
[~2023-05-12] MED LIST changes: +BYST1TAB PO; -BYST20TA2 PO; +CEFD1CAP9 PO; -CEFD300C41 PO; +EZET10TA58 PO; -ZETI10TA16 PO
== END ==
LOC: M RAD 16:07
PROVIDERS: ATTEND Pain Medicine Interventional Pain Medicine
DX: M54.12 Radiculopathy, cervical region (principal)

== ENCOUNTER → 2023-06-23 | Outpatient (REF) | payer BC, OTHER ==
[2023-06-23 15:27] LABS: CREATININE, URINE 45.7 MG/DL; MAU/CREAT RATIO 52.5 MCG/MG (0.0-30.0)
== END ==
LOC: M LAB REF 15:05
PROVIDERS: ATTEND Nurse Practitioner Family
DX: E11.65 Type 2 diabetes mellitus with hyperglycemia (principal)

== ENCOUNTER → 2023-06-27 | Outpatient (CLI) | payer BC, OTHER | LOC: M WUC 09:23 | PROVIDERS: ATTEND Nurse Practitioner Family | DX: R10.84 Generalized abdominal pain (principal) ==

== ENCOUNTER → 2023-07-26 | Outpatient (REF) | payer BC | LOC: M SFHCDERM 17:39 | PROVIDERS: ATTEND Physician Assistant | DX: C44.519 Basal cell carcinoma of skin of other part of trunk (principal) ==

== ENCOUNTER → 2023-08-03 | Outpatient (CLI) | payer BC ==
[~2023-08-03] MED LIST changes: +PROHANCE 279.3MG/ML 15ML VIAL ONE; +PROHANCE 279.3MG/ML 5ML VIAL ONE
== END ==
LOC: M PLAIMG 10:17
PROVIDERS: ATTEND Family Medicine
DX: H53.40 Unspecified visual field defects (principal)
CPT/HCPCS: 70553; A9576

== ENCOUNTER → 2023-09-25 | Outpatient (CLI) | payer BC, OTHER ==
[~2023-09-25] MED LIST changes: -PROHANCE 279.3MG/ML 15ML VIAL ONE; -PROHANCE 279.3MG/ML 5ML VIAL ONE
[2023-09-25 17:13] LABS: BASO # 0.1 10^3/uL (0.0-0.2); BASO % 0.6 % (0.0-1.0); EOS # 0.1 10^3/uL (0.0-0.5); HEMATOCRIT 44.8 % (42.0-52.0); LYMPH # 2.8 10^3/uL (1.5-5.0); LYMPH % 21.3 % (24.0-44.0); MEAN CORPUSCULAR HEMOGLOBIN 31.6 pg (27.0-33.0); MEAN CORPUSCULAR HGB CONC 33.5 g/dl (32.0-36.5); MEAN CORPUSCULAR VOLUME 94.5 fl (80.0-96.0); MONO # 1.1 10^3/uL (0.0-0.8); NEUTROPHILS % 67.7 % (36.0-66.0); PLATELET COUNT, AUTOMATED 304 10^3/uL (150-450); RED BLOOD COUNT 4.74 10^6/uL (4.30-6.10); WHITE BLOOD COUNT 13.3 10^3/uL (4.0-10.0)
[2023-09-25 17:44] LABS: ALBUMIN 3.7 G/DL (3.2-5.2); ALKALINE PHOSPHATASE 119 U/L (46-116); ALT/SGPT 28 U/L (7.0-40); AST/SGOT 18 U/L (<34); BILIRUBIN,TOTAL 0.8 MG/DL (0.3-1.2); BLOOD UREA NITROGEN 12 MG/DL (9-23); CALCIUM LEVEL 9.8 MG/DL (8.3-10.6); CARBON DIOXIDE LEVEL 31 MMOL/L (20-31); CHLORIDE LEVEL 104 MMOL/L (98-107); CREATININE FOR GFR 0.92 MG/DL (0.70-1.30); GLOMERULAR FILTRATION RATE > 60.0 (>49); GLUCOSE, FASTING 209 MG/DL (74-106); POTASSIUM SERUM 3.6 MMOL/L (3.5-5.1); SODIUM LEVEL 143 MMOL/L (136-145); TOTAL PROTEIN 6.7 G/DL (5.7-8.2)
[2023-09-25 17:46] LABS: THYROID STIMULATING HORMONE 2.075 uIU/ML (0.55-4.78)
== END ==
LOC: M WUC 14:21
PROVIDERS: ATTEND Family Medicine
DX: M25.511 Pain in right shoulder (principal); R53.83 Other fatigue

== ENCOUNTER → 2023-12-13 | Outpatient (REF) | payer BC, OTHER ==
[~2023-12-13] MED LIST changes: -BYST10TA2 PO; +BYST1TAB3 PO
== END ==
LOC: M SFHCDERM 17:23
PROVIDERS: ATTEND Physician Assistant
DX: C44.601 Unspecified malignant neoplasm of skin of unspecified upper limb, including shoulder (principal)

== ENCOUNTER → 2024-03-15 | Outpatient (CLI) | payer BC, OTHER ==
[~2024-03-15] MED LIST changes: +GABA-1172 PO; -GABA-282 PO
== END ==
LOC: M WUC 08:00
PROVIDERS: ATTEND Family Medicine
DX: M79.632 Pain in left forearm (principal)

== ENCOUNTER → 2024-04-05 | Outpatient (CLI) | payer BC | LOC: M PLARAD 09:51 | PROVIDERS: ATTEND Family Medicine | DX: D48.19 Other specified neoplasm of uncertain behavior of connective and other soft tissue (principal) ==

== ENCOUNTER → 2024-07-16 | Outpatient (CLI) | payer BC ==
[~2024-07-16] MED LIST changes: +GLIP-318 PO; -GLIP5TAB20 PO
== END ==
LOC: M RAD 16:28
PROVIDERS: ATTEND Internal Medicine Pulmonary Disease
DX: J43.9 Emphysema, unspecified (principal)

== ENCOUNTER → 2024-11-06 | Outpatient (CLI) | payer BC ==
[~2024-11-06] MED LIST changes: -PRAV20TA2 PO; +PRAV20TA78 PO
== END ==
LOC: M WUC 13:28
PROVIDERS: ATTEND Physician Assistant
DX: M25.572 Pain in left ankle and joints of left foot (principal)

== ENCOUNTER 2025-02-10 14:00 | Emergency (ER) | payer BC ==
[~2025-02-10] VITALS: Ht 180.3 cm; Wt 107.9 kg
[~2025-02-10 14:00] MED LIST changes: -ASPI-655 PO; +ASPI-737 PO
[2025-02-10 15:00] LABS: BASO # 0.1 10^3/uL (0.0-0.2); BASO % 0.4 % (0.0-1.0); EOS # 0.3 10^3/uL (0.0-0.5); EOS % 1.9 % (0.0-3.0); LYMPH # 2.5 10^3/uL (1.5-5.0); LYMPH % 18.7 % (24.0-44.0); MONO # 1.1 10^3/uL (0.0-0.8); MONO % 8.4 % (2.0-8.0); NEUTROPHILS # 9.4 10^3/uL (1.5-8.5); NEUTROPHILS % 69.9 % (36.0-66.0)
[2025-02-10 15:29] LABS: ALT/SGPT 25 U/L (7.0-40); AST/SGOT 38 U/L (<34); CALCIUM LEVEL 9.4 MG/DL (8.3-10.6); CARBON DIOXIDE LEVEL 29 MMOL/L (20-31); CHLORIDE LEVEL 100 MMOL/L (98-107); CK-MB VALUE MASS 2.7 NG/ML (<3.6); CREATININE FOR GFR 0.79 MG/DL (0.70-1.30); GLOMERULAR FILTRATION RATE > 90.0 (>49); POTASSIUM SERUM 4.1 MMOL/L (3.5-5.1); SODIUM LEVEL 139 MMOL/L (136-145)
[2025-02-10 15:30] LABS: CPK CREATINE PHOSPHOKINASE 123 U/L (46-171); MB/CK RELATIVE INDEX 2.19 (< OR =4)
[2025-02-10] MEDS ORDERED: PANT40TA29 PO (16:15)
[2025-02-10] MEDS ORDERED: GLIP-320 PO (16:15)
[2025-02-10] MEDS ORDERED: LOSA100T46 PO (16:18)
[2025-02-10] MEDS ORDERED: ROSU10TA90 PO (16:18)
[2025-02-10] MEDS ORDERED: LANTINJ4 INJ (16:18)
[2025-02-10] MEDS ORDERED: JANU100T PO (16:18)
[2025-02-10] MEDS ORDERED: HYDR-3490 PO (16:18)
[2025-02-10] MEDS ORDERED: THERTAB52 PO (16:18)
[2025-02-10] MEDS ORDERED: ALBU8.5H INH (16:18)
[2025-02-10] MEDS ORDERED: HOME MED LIST COMPLETE! XX SCH (16:20)
[2025-02-10] MEDS ORDERED: ISOVUE-370 76% 100 ML VIAL As Ordered ONE (16:52)
[2025-02-10 17:10] LABS: CK-MB VALUE MASS 2.4 NG/ML (<3.6)
[2025-02-10] MEDS: LIDOCAINE 5% PATCH TD ONE (17:13)
[2025-02-10] MEDS: KETOROLAC 30 MG/ML 1 ML VIAL IV ONE (17:14)
[2025-02-10 17:21] LABS: CPK CREATINE PHOSPHOKINASE 88 U/L (46-171); MB/CK RELATIVE INDEX 2.72 (< OR =4)
[2025-02-10] MEDS ORDERED: PERC5TAB12 PO (18:13)
[2025-02-10 18:48] VITALS: BP 150/70; TEMP 97.9; O2SAT 94
[2025-02-10] MEDS: PERCOCET 5MG/325MG TAB PO ONE (18:48)
== END 2025-02-10 19:14 | disposition home or self-care (01) ==
LOC: M ED 14:00
DX: R07.89 Other chest pain (principal); E11.9 Type 2 diabetes mellitus without complications; I10 Essential (primary) hypertension; J44.9 Chronic obstructive pulmonary disease, unspecified; K21.9 Gastro-esophageal reflux disease without esophagitis; E78.2 Mixed hyperlipidemia; Z88.1 Allergy status to other antibiotic agents; Z88.5 Allergy status to narcotic agent; Z88.8 Allergy status to other drugs, medicaments and biological substances; Z95.5 Presence of coronary angioplasty implant and graft
CPT/HCPCS: 71045; 71260; 80048; 80076; 82550; 82553; 84484; 85025; 93005; 93041; 94760; 96374; 99285; J1885; Q9967